=== PATIENT | male | born 1960 | race American Indian/Alaskan Native ===

== ENCOUNTER 2018-01-03 16:25 | Inpatient (IN) | payer MEDICAID, OTHER ==
--- NOTE | 2018-01-03 16:36 | ED PDOC ---
Arrival/HPI - General Time Seen by Provider: 01/03/18 16:29 Historian: Patient - Critical Care Critical Care Minutes: 30 minutes - History of Present Illness Narrative History of Present Illness (Text): 01/03/18 16:33 57yoM, w htn, having right partial aphasia, right sided facial droop, and right sided upper extremity and lower extremity weakness. no n/v/[place]/dizziness/sob/ chest pain/abdomen pain/pain with urination. Symptom Onset: Sudden Symptom Course: Unchanged Quality: Other (no pain) Activities at Onset: Rest Context: Sitting Past Medical History - Provider Review Nursing Documentation Reviewed: Yes - Travel History Have you recently traveled outside [place] w/in the past 3 mons?: No Family/Social History - Physician Review Nursing Documentation Reviewed: Yes Family/Social History: No Known Family HX Allergies/Home Meds Allergies/Adverse Reactions: Allergies No Known Allergies Allergy (Verified 01/03/18 16:27) Home Medications: Home Meds Medication Instructions Recorded Confirmed No Known Home Med 01/03/18 01/03/18 Review of Systems - Review of Systems Constitutional: Normal Eyes: Normal ENT: Normal Respiratory: Normal Cardiovascular: Normal Gastrointestinal: Normal Genitourinary Male: Normal Musculoskeletal: Normal Skin: Normal Neurological: Focal Weakness, Facial Droop Endocrine: Normal Hemo/Lymphatic: Normal Psychiatric: Normal Physical Exam Vital Signs Temp Pulse Resp BP Pulse Ox 01/03/18 18:48 98 F 72 18 169/89 H 01/03/18 18:18 75 18 163/96 H 97 01/03/18 17:51 75 18 167/98 H 96 01/03/18 17:42 78 185/115 H 01/03/18 17:21 98.3 F 89 18 176/106 H 95 01/03/18 16:35 98 F 88 18 185/116 H 96 Appearance: Positive for: Well-Appearing, Non-Toxic, Comfortable Pain Distress: None Mental Status: Positive for: other (aaox2, doesn't know year/month) - Systems Exam Head: Present: Atraumatic, Normocephalic Pupils: Present: PERRL Extroacular Muscles: Present: EOMI Conjunctiva: Present: Normal Ears: Present: Normal Mouth: Present: Moist Mucous Membranes Pharnyx: Present: Normal Nose (External): Present: Atraumatic Nose (Internal): Present: Normal Inspection Neck: Present: Normal Range of Motion Respiratory/Chest: Present: Clear to Auscultation, Good Air Exchange Cardiovascular: Present: Regular Rate and Rhythm Abdomen: No: Tenderness, Distention, Normal Bowel Sounds, Peritoneal Signs, Rebound, Guarding, McBurney's Point Tender, Rovsing's Sign Present, Hernias, Feeding Tubes, Ostomy Tubes, Mass/Organomegaly, Scars, Other Back: Present: Normal Inspection Upper Extremity: Present: Normal Inspection Lower Extremity: Present: Normal Inspection Neurological: Present: Other (mild dysarthria, right sided ue/le weakness) Psychiatric: Present: Alert, Oriented x 3, Normal Insight, Normal Concentration Medical Decision Making ED Course and Treatment: 57yoM, w htn, having right partial aphasia, right sided facial droop, and right sided upper extremity and lower extremity weakness. no n/v/[place]/dizziness/sob/ chest pain/abdomen pain/pain with urination. d/w neurologist carpentry professional who stated to call back after ct head. Report Date : 01/03/2018 16:47:38 PROCEDURE: CT HEAD WITHOUT CONTRAST. 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 See comments pt able to move the right upper extremity but has drift and the RLE poor raise and does so with bend and unable to maintain life. d/w Dr. Hall who stated give aspirin, proceed with CTA head/neck. prepare TPA. Report Date : 01/03/2018 16:58:01 Procedure: Chest xray Dictator : Raul Patel MD IMPRESSION: No active disease. 01/03/18 18:00 d/w Dr. Hall who stated to hold off on CTA head/neck at this time, start TPA, and admit to the ICU and can proceed w imaging afterwards. 01/03/18 18:03 ICU paged. 01/03/18 18:21 d/w Dr. Hall who reiterated proceed with TPA. frank OTT who is evaluating patient. 01/03/18 19:12 Frank Ariza who stated Dr. Russ accepted and pt can come to the ICU. Reassessment Condition: Improving,but remains with symptoms - Lab Interpretations Lab Results: 01/03/18 16:59 01/03/18 16:59 Lab Results 01/03/18 18:10: Blood Type O POSITIVE, Antibody Screen Negative, BBK History Checked No verified bt 01/03/18 16:59: Sodium 144, Potassium 3.6, Chloride 109 H, Carbon Dioxide 25, Anion Gap 14, BUN 14, Creatinine 1.3, Est GFR ( Amer) > 60, Est GFR (Non- Af Amer) 57, Random Glucose 122 H, Calcium 9.1, Magnesium 1.9, Total Bilirubin 0.5, AST 29, ALT 28, Alkaline Phosphatase 62, Lactate Dehydrogenase 489, Total Creatine Kinase 127, Troponin I < 0.01, Total Protein 7.0, Albumin 4.0, Globulin 3.0, Albumin/Globulin Ratio 1.4 01/03/18 16:59: PT 12.0, INR 1.05, APTT 31.7 01/03/18 16:59: WBC 6.1, RBC 4.90, Hgb 13.8 L, Hct 40.9 L, MCV 83.5, MCH 28.2, MCHC 33.7, RDW 14.2, Plt Count 212, MPV 10.1, Gran % 39.0 L, Lymph % (Auto) 52.1 H, [place] % (Auto) 7.9 H, Eos % (Auto) 0.7 L, Baso % (Auto) 0.3, Gran # 2.36 , Lymph # (Auto) 3.2, [place] # (Auto) 0.5, Eos # (Auto) 0.0, Baso # (Auto) 0.02 I have reviewed the lab results: Yes - RAD Interpretation Radiology Orders: 01/03/18 16:28 HEAD W/O (CODE STROKE) [CT] Stat 01/03/18 16:32 CHEST PORTABLE [RAD] Stat 01/03/18 17:05 CTA HEAD/NECK CODE STROKE [CT] Stat 01/03/18 17:27 MRI CODE STROKE/CODE BAT AMY [MRI] Urgent 01/03/18 18:41 CAROTID & VERTEBRAL DUPLEX [US] Routine Button Bradder: Radiologist - EKG Interpretation Interpreted by ED Physician: Yes (NSR, flipped t waves i, ii, iii, avf, v4, v5, v6.) Type: 12 lead EKG - Medication Orders Current Medication Orders: Sodium Chloride (Sodium Chloride 0.9%) 1,000 mls @ 100 mls/hr IV .Q10H SILVIA Last Admin: 01/03/18 17:43 Dose: 100 mls/hr eMAR Start Stop Document 01/03/18 17:43 [facility] (Rec: 01/03/18 17:43 [id number] Intravenous Solution Start Date 01/03/18 Start Time 17:43 diltiaZEM IVPB 100mg in NS (Cardizem 100mg In Ns) 100 mls @ 5 mls/hr IV .Q20H PRN; Protocol; 5 MG/HR PRN Reason: TITRATE PER MD ORDER Discontinued Medications Alteplase, Recombinant (Activase 100 Mg Inj) 6 mg 0.09 mg/kg (6 mg) IV ONCE ONE Stop: 01/03/18 17:58 Last Admin: 01/03/18 18:48 Dose: 6 mg eMAR Start Stop Document 01/03/18 18:48 [facility] (Rec: 01/03/18 18:49 [id number] Intravenous Solution Start Date 01/03/18 Start Time 18:47 End Date 01/03/18 End time 18:49 Total Infusion Time 2 Alteplase, Recombinant (Activase 100 Mg Inj) 55 mg 0.81 mg/kg (55 mg) IV ONCE ONE Stop: 01/03/18 18:15 Last Admin: 01/03/18 18:49 Dose: 55 mg eMAR Start Stop Document 01/03/18 18:49 [facility] (Rec: 01/03/18 18:50 [id number] Intravenous Solution Start Date 01/03/18 Start Time 18:50 End Date 01/03/18 End time 19:50 Total Infusion Time 60 Aspirin (Aspirin) 325 mg PO STAT STA Stop: 01/03/18 16:58 Last Admin: 01/03/18 17:43 Dose: Not Given Non-Admin Reason: NPO Labetalol HCl (Trandate) 20 mg IV STAT STA Stop: 01/03/18 17:26 Last Admin: 01/03/18 17:42 Dose: 20 mg eMAR Start Stop Document 01/03/18 17:42 [facility] (Rec: 01/03/18 17:43 [id number] Intravenous Solution Start Date 01/03/18 Start Time 17:42 End Date 01/03/18 End time 17:43 Total Infusion Time 1 MAR Pulse and Blood Pressure Document 01/03/18 17:42 [facility] (Rec: 01/03/18 17:43 [facility]-[id number]) Pulse Pulse Rate (60-90) 78 Blood Pressure Blood Pressure (100/60-150/90) 185/115 NIHSS Stroke Scale 3 - Date/Time Evaluation Performed Date Performed: 01/03/18 When Was NIHSS Performed: Baseline - How Severe is the Stroke Level of Consciousness: 0=Alert LOC to Questions: 1=One correct LOC to commands: 0=Obeys both correctly Best Gaze: 0=Normal Visual: 0=No visual loss Facial: 1=Minor asymmetry Motor Arm - Left: 0=No drift Motor Arm - Right: 3=No effort against gravity (falls immediately) Motor Leg - Left: 0=No drift Motor Leg - Right: 3=No effort against gravity (falls immediately) Limb Ataxia: 1=Present Upper or Lower Sensory: 1=Mild to moderate loss Best Language: 1=Mild to moderate aphasia Dysarthia: 1=Mild to moderate slurring Extinction & Inattention (Neglect): 1=Partial neglect (mild yosef-attention) Score: 13 Disposition/Present on Arrival - Present on Arrival Any Indicators Present on Arrival: No - Disposition Have Diagnosis and Disposition been Completed?: Yes Diagnosis: Stroke Disposition: HOSPITALIZED Disposition Time: 19:13 Patient Plan: Admission Condition: STABLE Referrals: Zaynab Chiang, [Primary Care Provider] - Follow up with primary
--- NOTE | 2018-01-03 16:49 | CT ---
PROCEDURE: CT HEAD WITHOUT CONTRAST. HISTORY: code stroke COMPARISON: None available. TECHNIQUE: Axial computed tomography images were obtained through the head/brain without intravenous contrast. Radiation dose: Total exam DLP = 965 mGy-cm. This CT exam was performed using one or more of the following dose reduction techniques: Automated exposure control, adjustment of the mA and/or kV according to patient size, and/or use of iterative reconstruction technique. FINDINGS: HEMORRHAGE: No intracranial hemorrhage. BRAIN: No mass effect or edema. Two separate areas of hypodensity are seen 1 in the right parietal lobe and the 2nd in the left posterior frontal lobe or in the parietal lobe. Both of these have the appearance of chronic infarcts. Unfortunately there are no prior studies for comparison. MRI of may be indicated to further evaluate these findings. Findings were discussed with Dr. Matute at 4:45 p.m. VENTRICLES: Unremarkable. No hydrocephalus. CALVARIUM: Unremarkable. PARANASAL SINUSES: Unremarkable as visualized. No significant inflammatory changes. MASTOID AIR CELLS: Unremarkable as visualized. No inflammatory changes. OTHER FINDINGS: None. 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 See comments
--- NOTE | 2018-01-03 17:00 | RAD ---
HISTORY: 57yoM, stroke symptoms COMPARISON: No prior. FINDINGS: LUNGS: No active pulmonary disease. PLEURA: No significant pleural effusion identified, no pneumothorax apparent. CARDIOVASCULAR: No radiographic findings to suggest acute or significant cardiovascular disease. OSSEOUS STRUCTURES: No significant abnormalities. VISUALIZED UPPER ABDOMEN: Normal. OTHER FINDINGS: None. IMPRESSION: No active disease.
[2018-01-03 17:05] LABS: BASO # 0.02 K/mm3 (0.0-2.0); BASO % 0.3 % (0.0-3.0); EOS % 0.7 % (1.5-5.0); GRAN # 2.36 (1.4-6.5); HEMOGLOBIN 13.8 g/dL (14.0-18.0); LYMPH # 3.2 (1.2-3.4); LYMPH % 52.1 % (22.0-35.0); MEAN CELL VOLUME 83.5 fl (80.0-105.0); MEAN CORPUSCULAR HEMOGLOBIN 28.2 pg (25.0-35.0); MEAN CORPUSCULAR HGB CONC 33.7 g/dl (31.0-37.0); MEAN PLATELET VOLUME 10.1 fl (7.0-11.0); MONO # 0.5 (0.1-0.6); MONO % 7.9 % (1.0-6.0); RBC 4.9 10^6/uL (3.5-6.1); RED CELL DISTRIBUTION WIDTH 14.2 % (11.5-14.5); WHITE BLOOD COUNT 6.1 10^3/ul (4.5-11.0)
[2018-01-03 17:15] LABS: INR 1.05 (0.93-1.08); PARTIAL THROMBOPLASTIN TIME 31.7 Seconds (25.1-36.5)
[2018-01-03] MEDS ORDERED: Sodium Chloride 0.9% 1,000 ML IV SCH (17:15)
[2018-01-03 17:16] LABS: ALB/GLOB RATIO 1.4 (1.1-1.8); ALT/SGPT 28 U/L (7-56); AST/SGOT 29 U/L (17-59); BLOOD UREA NITROGEN 14 mg/dL (7-21); CALCIUM 9.1 mg/dL (8.4-10.5); GFR AFRICAN-AMERICAN > 60; GFR NON-AFRICAN AMERICAN 57
[2018-01-03] MEDS ORDERED: Labetalol 5 mg/ml Inj 20ML IV STA (17:25)
[2018-01-03 17:26] LABS: TROPONIN I < 0.01 ng/mL
--- NOTE | 2018-01-03 17:51 | CP.PCM.CON ---
History of Present Illness - History of Present Illness History of Present Illness: 57 yr old male who has pmh htn, of ESRD on HD, who had right sided facial droop, right arm weakness, that is now resolved. He is not a TPA candidate, and upon exam he has a normal neurological exam. no n/v/[place]/dizziness/sob/chest pain/ abdomen pain/pain with urination. He denies headache, weakness, or prior spells at this time, but is quite lethargic. PMH/PSH: as above, with left leg aka. FH/SH: as per chart All: nkda On exam: AAox3. Cn 2-12 normal. No facial asymmetry. Speech mildly dysarthric but fluent. Right arm mild pronator drift. right leg 5/5 left arm 5/5,. sensory: decreased ft, pin on right arm. Gait not tested. +2 dtr ul and ll bl. Toes dowgoing. No clonus. Past Patient History - Past Social History Smoking Status: Never Smoked - PSYCHIATRIC Hx Substance Use: No - SURGICAL HISTORY Hx Surgeries: No Meds Allergies/Adverse Reactions: Allergies Allergy/AdvReac Type Severity Reaction Status Date / Time No Known Allergies Allergy Verified 01/03/18 16:27 Results - Labs Result Diagrams: 01/03/18 16:59 01/03/18 16:59 - Imaging and Cardiology CT scan - head Status: Image reviewed by me, Report reviewed by me (ct head normal. ) Assessment & Plan - Assessment and Plan (Free Text) Assessment: 57 yr old male with spell of confusion and right sided weakness that is not completely resolved who is not TPA candidate due to very low NIH score. He most likely has atherosclerosis, and would benefit from stroke workup. Plan: 1. Echo 2. Cta HEAD AND NECK 3. start aspirin 325 mg po qd 4. MRI Brain without rocio 5. DVT prophylaxis 6. PT/ST/OT 8. Admit to telemetry. Thank you dr. tapia
--- NOTE | 2018-01-03 18:16 | CP.PCM.CON ---
History of Present Illness - History of Present Illness History of Present Illness: 57 yr old male who came in as a code stroke, with symptoms of right facial droop, right leg weakness that started about 30 minutes before coming to Er. CT head was normal, as well as labs, and we have determined that he is a TPA candidate. We will give TPA bolus, and admit to ICU for observation after administration. NIH score is approximately 6/10. PMH/PSH: FH/SH: All: on exam: Past Patient History - Past Social History Smoking Status: Never Smoked - PSYCHIATRIC Hx Substance Use: No - SURGICAL HISTORY Hx Surgeries: No Meds Allergies/Adverse Reactions: Allergies Allergy/AdvReac Type Severity Reaction Status Date / Time No Known Allergies Allergy Verified 01/03/18 16:27 - Medications Medications: Current Medications Sodium Chloride (Sodium Chloride 0.9%) 1,000 mls @ 100 mls/hr IV .Q10H SILVIA Last Admin: 01/03/18 17:43 Dose: 100 mls/hr Results - Vital Signs Recent Vital Signs: Last Vital Signs Temp 98.3 F 01/03/18 17:21 Pulse 75 01/03/18 17:51 Resp 18 01/03/18 17:51 BP 167/98 H 01/03/18 17:51 Pulse Ox 96 01/03/18 17:51 - Labs Result Diagrams: 01/03/18 16:59 01/03/18 16:59 Labs: Laboratory Results - last 24 hr 01/03/18 01/03/18 01/03/18 16:59 16:59 16:59 WBC 6.1 RBC 4.90 Hgb 13.8 L Hct 40.9 L MCV 83.5 MCH 28.2 MCHC 33.7 RDW 14.2 Plt Count 212 MPV 10.1 Gran % 39.0 L Lymph % (Auto) 52.1 H Branch % (Auto) 7.9 H Eos % (Auto) 0.7 L Baso % (Auto) 0.3 Gran # 2.36 Lymph # (Auto) 3.2 Branch # (Auto) 0.5 Eos # (Auto) 0.0 Baso # (Auto) 0.02 PT 12.0 INR 1.05 APTT 31.7 Sodium 144 Potassium 3.6 Chloride 109 H Carbon Dioxide 25 Anion Gap 14 BUN 14 Creatinine 1.3 Est GFR ( Amer) > 60 Est GFR (Non-Af Amer) 57 Random Glucose 122 H Calcium 9.1 Magnesium 1.9 Total Bilirubin 0.5 AST 29 ALT 28 Alkaline Phosphatase 62 Lactate Dehydrogenase 489 Total Creatine Kinase 127 Troponin I < 0.01 Total Protein 7.0 Albumin 4.0 Globulin 3.0 Albumin/Globulin Ratio 1.4 - Imaging and Cardiology CT scan - head Status: Image reviewed by me, Report reviewed by me (Normal ct head no strokes or hemorrhages. ) Assessment & Plan - Assessment and Plan (Free Text) Assessment: 57 yr old male who is a TPA candidate and is most likely having left mca stroke. TPA was given approximately 1.5 hours after presentation with initial NIH score of 6. We will admit the patient to ICU and start stroke workup. Plan 1. Keep BP normotensive at aroudn 150/70-140/70 2. ECHO with bubble study 3. CTA head and neck and neurovascular consultation if needed 4. No aspirin at this time. 5. DVT with venodynes 6. PT/St/OT 7. Neuro checks q 4hours 8. Repeat CT head in am. 9. Admit to ICU with telemetry Thank you dr. Hall
--- NOTE | 2018-01-03 18:39 | CP.PCM.CON ---
History of Present Illness - History of Present Illness History of Present Illness: MICU Consult Note HPI Patient is 57yo male with PMhx of HTN, past cocaine use, presents with R sided weakness, dysarthria, confusion. Pt's daughter, kaiden, at bedside and provided majority of the history. As per the daughter patient was last seen normal at 3;06pm, at which time he developed dysarthria, facial droop, and R sided weakness with difficulty ambulating. Pt presented to the ER as stroke code , case discussed with neurology by ER staff, patient a candidate for tPA therapy. Currently afebrile, HD stable, BP 163/90, awake, alert, protecting airway. PMHx as above PSHx as above Meds NONE FHx NC Social past cocaine use, current smoker 1ppd, denies etoh, illicit drug use Review of Systems - Review of Systems Review of Systems: as per HPI Past Patient History - Past Social History Smoking Status: Never Smoked - PSYCHIATRIC Hx Substance Use: No - SURGICAL HISTORY Hx Surgeries: No Meds Allergies/Adverse Reactions: Allergies Allergy/AdvReac Type Severity Reaction Status Date / Time No Known Allergies Allergy Verified 01/03/18 16:27 - Medications Medications: Current Medications Sodium Chloride (Sodium Chloride 0.9%) 1,000 mls @ 100 mls/hr IV .Q10H SILVIA Last Admin: 01/03/18 17:43 Dose: 100 mls/hr Physical Exam - Constitutional Appears: Non-toxic, No Acute Distress - Eye Exam Eye Exam: EOMI, Normal appearance - ENT Exam ENT Exam: Mucous Membranes Moist - Respiratory Exam Respiratory Exam: Clear to Auscultation Bilateral, NORMAL BREATHING PATTERN - Cardiovascular Exam Cardiovascular Exam: REGULAR RHYTHM, +S1, +S2 - GI/Abdominal Exam GI & Abdominal Exam: Normal Bowel Sounds, Soft - Extremities Exam Extremities exam: Positive for: normal inspection - Neurological Exam Additional comments: LUE 5/5 LLE 5/5 RLE 3/5 RUE 2/5 NO facial asymetry Results - Vital Signs Recent Vital Signs: Last Vital Signs Temp 98.3 F 01/03/18 17:21 Pulse 75 01/03/18 18:18 Resp 18 01/03/18 18:18 BP 163/96 H 01/03/18 18:18 Pulse Ox 97 01/03/18 18:18 - Labs Result Diagrams: 01/03/18 16:59 05/15/18 16:59 Labs: Laboratory Results - last 24 hr 01/03/18 01/03/18 01/03/18 16:59 16:59 16:59 WBC 6.1 RBC 4.90 Hgb 13.8 L Hct 40.9 L MCV 83.5 MCH 28.2 MCHC 33.7 RDW 14.2 Plt Count 212 MPV 10.1 Gran % 39.0 L Lymph % (Auto) 52.1 H Bell % (Auto) 7.9 H Eos % (Auto) 0.7 L Baso % (Auto) 0.3 Gran # 2.36 Lymph # (Auto) 3.2 Bell # (Auto) 0.5 Eos # (Auto) 0.0 Baso # (Auto) 0.02 PT 12.0 INR 1.05 APTT 31.7 Sodium 144 Potassium 3.6 Chloride 109 H Carbon Dioxide 25 Anion Gap 14 BUN 14 Creatinine 1.3 Est GFR ( Amer) > 60 Est GFR (Non-Af Amer) 57 Random Glucose 122 H Calcium 9.1 Magnesium 1.9 Total Bilirubin 0.5 AST 29 ALT 28 Alkaline Phosphatase 62 Lactate Dehydrogenase 489 Total Creatine Kinase 127 Troponin I < 0.01 Total Protein 7.0 Albumin 4.0 Globulin 3.0 Albumin/Globulin Ratio 1.4 BBK History Checked 01/03/18 18:10 WBC RBC Hgb Hct MCV MCH MCHC RDW Plt Count MPV Gran % Lymph % (Auto) Bell % (Auto) Eos % (Auto) Baso % (Auto) Gran # Lymph # (Auto) Bell # (Auto) Eos # (Auto) Baso # (Auto) PT INR APTT Sodium Potassium Chloride Carbon Dioxide Anion Gap BUN Creatinine Est GFR ( Amer) Est GFR (Non-Af Amer) Random Glucose Calcium Magnesium Total Bilirubin AST ALT Alkaline Phosphatase Lactate Dehydrogenase Total Creatine Kinase Troponin I Total Protein Albumin Globulin Albumin/Globulin Ratio BBK History Checked No verified bt Assessment & Plan - Assessment and Plan (Free Text) Assessment: 57yo male with acute CVA receiving tPA Acute CVA HTN Recommend: - supp o2 as needed - panculture - BP control, SBP<180 - q1h neuro checks - echo with bubble - check lipid panel, TSH, HgbA1C - MRI/MRA - CT Angio - neurology follow up - no blood draws, shetty for 24h - monitor in MICU
[2018-01-03] MEDS ORDERED: diltiaZEM IVPB 100mg in NS 100 ML IV PRN (18:47)
[2018-01-03] MEDS ORDERED: Iohexol 300 100 ML IJ ONE (19:48)
[2018-01-03] MEDS ORDERED: Iohexol 350 MG/100 ML VIAL ONE (19:49)
--- NOTE | 2018-01-03 19:50 | CP.PCM.HP ---
Addendum entered and electronically signed by Lian Mansfield DO 01/03/18 21:43 : PMD: Dr Shonda Shipley @ [phone] [facility] Original Note: <Lian Mansfield - Last Filed: 01/03/18 21:34> History of Present Illness - History of Present Illness History of Present Illness: PGY-[address] Ariza Mr Elizabeth, 57 M, with PMHx active smoker of 1-2 PPD x 30 years, HTN, past heroine use 5 years ago, presented to ED c/o spell of confusion, R sided droop, right sided weakness with dysarthria, started at 3:06pm, 30 minutes before coming to the ER . Code stroke was called. Lab was normal. CT head showed hypodensity in R parietal and L posterior frontal lobe, possibly chronic. No mass or edema. He was deemed TPA candidate, and received TPA bolus. He was admitted to ICU for observation after administration. NIH score was approximately 6/10 pre-TPA ROS - Denies COBURN, dizziness, Chest pain, SOB, palpitation, N/V, abdomen pain, pain with urination. (+) slurr speech-improve, (+) R arm weakness-improved. PMH: hypertension Active smoker 1-2 PPD x 30 years Past heroine use > 5 years ago PSH: None FH: Denies. No inherited blood or autoimmune disorder SH: (+) Smoker 1-2PPD x 30 years, No etoh. No drug recently All: nkda Med: Amlodipine, but not taking it Daughter Ila [phone] PMD: [phone] [facility] Present on Admission - Present on Admission Any Indicators Present on Admission: No Past Patient History - Past Social History Smoking Status: Never Smoked - PSYCHIATRIC Hx Substance Use: No - SURGICAL HISTORY Hx Surgeries: No Meds Allergies/Adverse Reactions: Allergies Allergy/AdvReac Type Severity Reaction Status Date / Time No Known Allergies Allergy Verified 01/03/18 16:27 Physical Exam - Constitutional Appears: No Acute Distress - Head Exam Head Exam: ATRAUMATIC, NORMAL INSPECTION, NORMOCEPHALIC - Eye Exam Eye Exam: EOMI, Normal appearance, PERRL. absent: Scleral icterus Pupil Exam: NORMAL ACCOMODATION - ENT Exam ENT Exam: Mucous Membranes Moist - Neck Exam Additional comments: supple, No JVD - Respiratory Exam Respiratory Exam: Clear to Auscultation Bilateral. absent: Rales, Rhonchi, Wheezes - Cardiovascular Exam Cardiovascular Exam: REGULAR RHYTHM, +S1, +S2. absent: Systolic Murmur - GI/Abdominal Exam GI & Abdominal Exam: Normal Bowel Sounds, Soft. absent: Distended, Guarding, Tenderness - Extremities Exam Extremities exam: Positive for: pedal pulses present. Negative for: calf tenderness, pedal edema - Neurological Exam Neurological exam: Alert, Oriented x3 Additional comments: AAOx3 Slight slurring of speech. deepened nasal-labile fold on R EOMI tongue midline Mild drift R arm Motor: 4+/5 RUE, RLE; 5/5 LUE/LLE. Good hand weed thinner Sensory: markedly diminish R shoulder to R hand; markedly diminish R leg and foot [id number]: over shoot on R arm - Psychiatric Exam Psychiatric exam: Normal Affect, Normal Mood Additional comments: Tears. Pt was emotionally startled by this event - Skin Skin Exam: Dry, Warm Results - Vital Signs Recent Vital Signs: Last Vital Signs Temp 98 F 01/03/18 19:15 Pulse 73 01/03/18 19:15 Resp 18 01/03/18 19:15 BP 169/78 H 01/03/18 19:15 Pulse Ox 98 01/03/18 18:47 - Labs Result Diagrams: 01/03/18 16:59 01/03/18 16:59 Assessment & Plan - Assessment and Plan (Free Text) Plan: Mr Elizabeth, 57 M, with PMHx active smoker of 1-2 PPD x 30 years, HTN, past heroine use 5 years ago, presented to ED c/o spell of confusion, R sided droop, right sided weakness and numbness with dysarthria, started at 3:06pm, 30 minutes before coming to the ER . CT head showed hypodensity in R parietal and L posterior frontal lobe, possibly chronic. No mass or edema. He was deemed TPA candidate, and received TPA bolus. Neuro - maintain nomothermia - neuro check q1 - seizure precaution - Stroke workup: bubble study, carotid U/S, - no blood drawn in 24 hours. Lab will be drawn tomorrow 18:00 Lipid, A1C, TSH/Free T4 dsDNA, CHARLES, antiphospholipid ab, lupus ab, Cardiolipin Ab C function, S total/function, Anti-thrombin 3, Factor 5, 8 - smoking cessation counseling; nicoderm - Pending UDS - PT/OT/ST eval and treat - AM CT head, CTA head/neck, MRI head Pulm - Maintain PaO2 above 95%; O2 as needed Card - cardene gtt to maintain SBP < 180, DBP < 100 - should start ASA, statin pending neuro confirmation GI - NPO pending swallow eval - Protonix IV AM Renal - Strict i/o - No shetty to prevent bleeding Endo - maintain euglycemic 140 - Pending TSH, A1C, lipid Heme - S/p TPA - SCD as DVT prophylaxis ID: - Panculture tomorrow 18:00 s/r/d/w Dr Ariza <Annita SANTIAGO,El - Last Filed: 01/04/18 06:17> Results - Vital Signs Recent Vital Signs: Last Vital Signs Temp 98 F 01/04/18 04:00 Pulse 66 01/04/18 04:00 Resp 18 01/04/18 04:00 BP 125/82 01/04/18 04:00 Pulse Ox 99 01/04/18 04:00 - Labs Result Diagrams: 01/03/18 16:59 01/03/18 16:59 Labs: Laboratory Results - last 24 hr 01/03/18 01/03/18 01/03/18 20:09 22:32 23:23 Urine Color Yellow Urine Appearance Clear Urine pH 6.5 Ur Specific [place] 1.015 Urine Protein Trace H Urine Glucose (UA) Negative Urine Ketones Negative Urine Blood Trace-lysed H Urine Nitrate Negative Urine Bilirubin Negative Urine Urobilinogen 0.2 Ur Leukocyte Esterase Negative Urine RBC 2 - 5 Urine WBC 0 - 2 Ur Epithelial Cells None Urine Bacteria Few Urine Opiates Screen Negative Urine Methadone Screen Negative Ur Barbiturates Screen Negative Ur Phencyclidine Scrn Negative Ur Amphetamines Screen Negative U Benzodiazepines Scrn Negative U Oth Cocaine Metabols Negative U Cannabinoids Screen Negative Blood Type Confirm O POSITIVE Attending/Attestation - Attestation I have personally seen and examined this patient.: Yes I have fully participated in the care of the patient.: Yes I have reviewed all pertinent clinical information: Yes Notes (Text): -I agree with the above H&P completed by the resident physician with the following additions and/or changes: -The patient is a 57 year old man with a history of HTN and chronic cigarette abuse (1-2 PPD x 30yrs), being admitted for acute CVA (s/p t-PA administered in the ED) and hypertensive emergency. He'll be admitted to the ICU for hourly neuro-checks and tight BP control (goal: SBP<180 and DBP<100); using Nicardipine drip. Neurology is already on board. Swallow evaluation in AM, NPO, fall precautions and HOB>30.
--- NOTE | 2018-01-03 20:33 | CARD ---
APPROVED REPORT EKG Measurement Heart [id number] ID [id number] <Conclusion> Normal sinus rhythm Possible Left atrial enlargement Inferior infarct, age undetermined T wave abnormality, consider lateral ischemia Abnormal ECG
[2018-01-03] MEDS: Nicardipine 20 MG/200 ML 20 MG/200 ML BAG IV PRN (21:39)
[2018-01-03] MEDS: Sodium Chloride 0.45% 1,000 ML IV SCH (21:40)
[2018-01-03 22:49] LABS: PH,URINE 6.5 (4.7-8.0); URINE BILIRUBIN NEGATIVE (NEGATIVE); URINE BLOOD TRACE-LYSED (NEGATIVE); URINE GLUCOSE (UA) NEGATIVE (NEGATIVE); URINE LEUKOCYTE ESTERASE NEGATIVE Leu/uL (NEGATIVE); URINE PROTEIN TRACE mg/dL (<30 mg/dL); URINE UROBILINOGEN 0.2 E.U./dL (<1 E.U./dL)
[2018-01-03 22:52] LABS: URINE APPEARANCE CLEAR (CLEAR); URINE COLOR YELLOW (YELLOW)
[2018-01-03 23:04] LABS: URINE BACTERIA FEW (NEG); URINE WBC 0 - 2 /hpf (0-6)
[2018-01-04 00:13] LABS: BARBITURATES, UR NEGATIVE (NEGATIVE); BENZODIAZEPINES, UR NEGATIVE (NEGATIVE); OPIATES, UR NEGATIVE (NEGATIVE); PHENCYCLIDINE, UR NEGATIVE (NEGATIVE)
[2018-01-04 02:00] VITALS: BMI 21.6
[2018-01-04] MEDS: Nicardipine 20 MG/200 ML 20 MG/200 ML BAG IV PRN (03:50)
[2018-01-04 04:14] LABS: HDL CHOLESTEROL 44 mg/dL (29-60)
[2018-01-04 04:25] LABS: LDL CHOLESTEROL 61 mg/dL (0-129)
[2018-01-04] MEDS: Sodium Chloride 0.45% 1,000 ML IV SCH ×2 (07:10→17:00)
--- NOTE | 2018-01-04 07:12 | CP.PCM.PN ---
Addendum entered and electronically signed by Barber Hatch DO 01/04/18 17:56 : MRI of brain: Acute infarct changes seen in the left lung parietal operculum region extending anteriorly and inferiorly into the left posterior subinsular cortex as well as superiorly near the vertex. There are curvilinear areas of very dark T2 signal seen on gradient echo weighted sequence along some portions of the affected cortex which is of uncertain etiology though could represent some residual iodinated contrast material from prior CTA of the neck and brain due to some vascular stasis as no definitive hemorrhage seen in this location on CT scan. Follow-up of CT scan recommended to confirm and exclude any hemorrhagic degradation. Note these findings were discussed with ICU Nurse Chad at approximately 3:40 p.m. with written down and read back verification. Original Note: <Barber Hatch - Last Filed: 01/04/18 12:48> Subjective - Date & Time of Evaluation Date of Evaluation: 01/04/18 Time of Evaluation: 07:45 - Subjective Subjective: Hospitalist Service: Patient seen and examined at bedside. Patient reports weakness of right upper and lower extremity has resolved. Patient does report some sensory changes in the right hand. Otherwise, no complaints. Objective - Vital Signs/Intake and Output Vital Signs (last 24 hours): Temp Pulse Resp BP Pulse Ox 98 F 63 18 135/75 98 01/04/18 04:00 01/04/18 06:00 01/04/18 06:00 01/04/18 06:00 01/04/18 06:00 Intake and Output: 01/04/18 01/04/18 06:59 18:59 Intake Total 275 Balance 275 - Medications Medications: Current Medications Nicardipine HCl (Cardene Iv Premix) 20 mg in 200 mls @ 50 mls/hr IV .Q4H PRN; Protocol; 5 MG/HR PRN Reason: TITRATE PER MD ORDER Last Titration: 01/04/18 06:30 Dose: 0 mg/hr, 0 mls/hr Sodium Chloride (Sodium Chloride 0.45%) 1,000 mls @ 100 mls/hr IV .Q10H SILVIA Last Admin: 01/03/18 21:40 Dose: 100 mls/hr Nicotine (Nicoderm Cq) 1 patch TD DAILY SILVIA Pantoprazole Sodium (Protonix Inj) 40 mg IVP DAILY SILVIA - Labs Labs: PT 12.0 SECONDS (9.4-12.5) 18 16:59 INR 1.05 (0.93-1.08) 18 16:59 APTT 31.7 Seconds (25.1-36.5) 01/03/18 16:59 - Constitutional Appears: Well, Non-toxic - Head Exam Head Exam: ATRAUMATIC, NORMOCEPHALIC - Eye Exam Eye Exam: EOMI, Normal appearance - ENT Exam ENT Exam: Mucous Membranes Moist - Neck Exam Neck Exam: Normal Inspection - Respiratory Exam Respiratory Exam: Clear to Ausculation Bilateral, NORMAL BREATHING PATTERN. absent: Accessory Muscle Use - Cardiovascular Exam Cardiovascular Exam: RRR, +S1, +S2 - GI/Abdominal Exam GI & Abdominal Exam: Soft, Normal Bowel Sounds - Extremities Exam Extremities Exam: Normal Inspection. absent: Calf Tenderness - Neurological Exam Neurological Exam: Alert, Awake, Oriented x3 Neuro motor strength exam: Left Upper Extremity: 5, Right Upper Extremity: 5, Left Lower Extremity: 5, Right Lower Extremity: 5 - Psychiatric Exam Psychiatric exam: Normal Affect, Normal Mood - Skin Skin Exam: Dry, Intact, Normal Color, Warm Assessment and Plan - Assessment and Plan (Free Text) Assessment: Mr Elizabeth, 57 M, with PMHx active smoker of 1-2 PPD x 30 years, HTN, past heroin use 5 years ago, presented to ED c/o spell of confusion, R sided droop, right sided weakness and numbness with dysarthria, started at 3:06pm, 30 minutes before coming to the ER . CT head showed hypodensity in R parietal and L posterior frontal lobe, possibly chronic. No mass or edema. He was deemed TPA candidate, and received TPA bolus. Neuro - maintain nomothermia - neuro check q1 - seizure precaution - Stroke workup: bubble study - no blood drawn in 24 hours. Lab will be drawn today 18:00 TG 132 Cholesterol 151 LDL 61 HDL 44 A1C, TSH/Free T4 pending dsDNA, CHARLES, antiphospholipid ab, lupus ab, Cardiolipin Ab C function, S total/function, Anti-thrombin 3, Factor 5, 8 - smoking cessation counseling; nicoderm - UDS negative - PT/OT/ST eval and treat - AM CT head reads as: Re-demonstrated are chronic appearing bilateral right parietal and left posterior frontoparietal infarct changes. Note that the possibility of a small hyperacute infarct cannot be excluded on this study Minor generalized volume loss. - CTA head/neck reads as Normal CT Angiography of the neck. - MRI head pending Pulm - Maintain PaO2 above 95%; O2 as needed Card - cardene gtt to maintain SBP < 180, DBP < 100 - aspirin can be started 24 hours after tPa administration; decision deferred to neurology GI - NPO pending swallow eval - Protonix IV AM Renal - Strict i/o - No shetty to prevent bleeding Endo - maintain euglycemic 140 - Pending TSH, A1C, lipid Heme - S/p TPA - SCD as DVT prophylaxis ID: - Panculture today 18:00 s/r/d/w Dr Workman <Flex Workman - Last Filed: 01/06/18 15:47> Objective - Vital Signs/Intake and Output Vital Signs (last 24 hours): Temp Pulse Resp BP Pulse Ox 98.3 F 78 18 137/84 96 01/06/18 06:00 01/06/18 10:00 01/06/18 06:00 01/06/18 09:23 01/06/18 06:00 Intake and Output: 01/06/18 01/06/18 06:59 18:59 Intake Total 200 600 Balance 200 600 - Labs Labs: 01/06/18 05:45 01/06/18 05:45 PT 12.0 SECONDS (9.4-12.5) 01/03/18 16:59 INR 1.05 (0.93-1.08) 01/03/18 16:59 APTT 31.7 Seconds (25.1-36.5) 01/03/18 16:59 Attending/Attestation - Attestation I have personally seen and examined this patient.: Yes I have fully participated in the care of the patient.: Yes I have reviewed all pertinent clinical information, including history, physical exam and plan: Yes Notes (Text): 01/06/18 15:46 Medical record note made by the resident after discussion with my direction and input after the patient was personally seen and examined by me. I have reviewed the chart and agree that the record accurately reflects by personal performance of the history, physical exam, data review, and medical decision-making, in the course for the patient. I have also personally directed the plan of care. 57 male with PMH of HTN, cocaine user, ex smoker presented with R sided weakness and facial droop. Code Stroke was called in the ED and patient was given tPA and transferred to MICU for monitoring. MRI of Brain today showedAcute infarct changes seen in the left lung parietal operculum region extending anteriorly and inferiorly into the left posterior subinsular cortex as well as superiorly near the vertex. Patient right sided weakness has resolved.He still has sensory deficit in right upper extremities. Blood pressure is better controlled.He is off Cardizem drip.We will follow up Echo. Management plan was discussed in detail with patient. Education was provided.
--- NOTE | 2018-01-04 08:02 | CP.PCM.PN ---
Subjective - Date & Time of Evaluation Date of Evaluation: 01/04/18 Time of Evaluation: 08:00 - Subjective Subjective: PGY2 Progress note for Dr. Hall Patients seen and examined at bedside. Nursing reports no acute events overnight. Patient was resting comfortably in bed with family at bedside. Denied any residual weakness in his RUE and RLE. Patient's only complain was decreased sensation in his R forearm and hand. Patient denied acute complaints of headache, dizziness, chest pain, palpitations, SOB, cough, abd pain, nausea, vomiting, bowel/bladder complaints, pain/swelling in his legs b/l. Patient is eating well and is to work with PT today. Objective - Vital Signs/Intake and Output Vital Signs (last 24 hours): Temp Pulse Resp BP Pulse Ox 98 F 70 27 H 127/76 99 01/04/18 04:00 01/04/18 07:50 01/04/18 07:50 01/04/18 07:30 01/04/18 07:50 Intake and Output: 01/04/18 01/04/18 06:59 18:59 Intake Total 275 Balance 275 - Medications Medications: Current Medications Nicardipine HCl (Cardene Iv Premix) 20 mg in 200 mls @ 50 mls/hr IV .Q4H PRN; Protocol; 5 MG/HR PRN Reason: TITRATE PER MD ORDER Last Titration: 01/04/18 06:30 Dose: 0 mg/hr, 0 mls/hr Sodium Chloride (Sodium Chloride 0.45%) 1,000 mls @ 100 mls/hr IV .Q10H SILVIA Last Admin: 01/04/18 07:10 Dose: 100 mls/hr Nicotine (Nicoderm Cq) 1 patch TD DAILY SILVIA Pantoprazole Sodium (Protonix Inj) 40 mg IVP DAILY SILVIA - Labs Labs: PT 12.0 SECONDS (9.4-12.5) 01/03/18 16:59 INR 1.05 (0.93-1.08) 01/03/18 16:59 APTT 31.7 Seconds (25.1-36.5) 01/03/18 16:59 - Constitutional Appears: Non-toxic, No Acute Distress - Head Exam Head Exam: ATRAUMATIC, NORMAL INSPECTION, NORMOCEPHALIC - Eye Exam Eye Exam: EOMI, Normal appearance, PERRL. absent: Conjunctival injection, Scleral icterus Pupil Exam: NORMAL ACCOMODATION - ENT Exam ENT Exam: Mucous Membranes Moist - Neck Exam Neck Exam: Full ROM, Normal Inspection - Respiratory Exam Respiratory Exam: NORMAL BREATHING PATTERN. absent: Accessory Muscle Use, Respiratory Distress - Cardiovascular Exam Cardiovascular Exam: +S1, +S2 - GI/Abdominal Exam GI & Abdominal Exam: Soft. absent: Tenderness - Rectal Exam Rectal Exam: Deferred - Extremities Exam Extremities Exam: Normal Capillary Refill, Normal Inspection. absent: Pedal Edema, Tenderness - Neurological Exam Neurological Exam: Alert, Awake, CN II-XII Intact, Normal Gait, Oriented x3 Neuro motor strength exam: Left Upper Extremity: 5, Right Upper Extremity: 5, Left Lower Extremity: 5, Right Lower Extremity: 5 Additional comments: no aphasia no dysarthria decreased sensation R hand - Psychiatric Exam Psychiatric exam: Normal Affect, Normal Mood - Skin Skin Exam: Dry, Intact, Normal Color, Warm Assessment and Plan - Assessment and Plan (Free Text) Assessment: 57yo male PMhx HTN, cocaine user, ex smoker presented with R sided weakness and facial droop. Code Stroke was called in the ED and patient was given tPA and transferred to MICU for monitoring. Plan: -maintain SBP 120-140mmHg -patient off cardene gtt -f/u hypercoag work up -f/u MRI -f/u Echo with bubble -CT head this AM s/p tPA yesterday: no acute intracranial hemorrhage. Re- demonstrated are chronic appearing b/l R parietal and L posterior frontoparietal infarct changes. Note that the possibility of a small hyperacute infarct cannot be excluded on this study. Minor generalized volume loss. -CTA head/neck: unremarkable -CT head on admission: probable chronic infarcts in R parietal and L posterior frontal lobes -PT/OT -Smoking cessation and Drug counseling -Aspiration and Seizure precautions -Neuro checks -HoB above 30 degrees -Continue management as per medicine team Neuro will continue to follow Discussed with Dr. Rafael Roy PGY2
--- NOTE | 2018-01-04 08:56 | CT ---
PROCEDURE: CT angiogram of the neck brain 01/03/2018 HISTORY: Per Dr. Hall -57M, right sided weakness. COMPARISON: Correlation made with CT scan brain 01/03/2018 at 1634 hours TECHNIQUE: Contiguous helical/transaxial images of the neck and brain were obtained from the level of the skull-base to the superior mediastinum in the arteriographic phase of enhancement. Coronal and sagittal reformats or also generated. IV contrast dose: 100 cc Omnipaque 350 Radiation Dose - DLP: 673.15 mGy-cm This CT exam was performed using one or more of the following dose reduction techniques: Automated exposure control, adjustment of the mA and/or kV according to patient size, and/or use of iterative reconstruction technique. . . FINDINGS: Visualized portions of the aortic arch hop are patent without significant atherosclerotic plaque. On the origins of the great vessels are also widely patent. The common carotid arteries, carotid bifurcations and internal carotid arteries are also patent without evidence of significant atherosclerotic plaque. No evidence of occlusion significant stenosis or dissection. The none distal internal carotid arteries including the petrous cavernous and supraclinoid segments also patent. Both vertebral arteries are visible throughout right-sided which is slightly larger in caliber/more dominant than the left side. origin of the right posterior cerebral artery. The visualized major branches of the [place] are patent as well. The proximal margins of the anterior middle and posterior cerebral arteries are patent ; and distal branches are symmetric so far as can be determined. No evidence of large aneurysm nor vascular malformation. IMPRESSION: Normal CT Angiography of the neck. .
--- NOTE | 2018-01-04 09:06 | CT ---
PROCEDURE: CT scan brain dated 01/04/2018. HISTORY: Compare stroke COMPARISON: Comparison made with prior study 01/03/2018. TECHNIQUE: Axial computed tomography images were obtained through the head/brain without intravenous contrast. Radiation dose: Total exam DLP = 856.28 mGy-cm. This CT exam was performed using one or more of the following dose reduction techniques: Automated exposure control, adjustment of the mA and/or kV according to patient size, and/or use of iterative reconstruction technique. FINDINGS: HEMORRHAGE: No acute parenchymal, subarachnoid or extra-axial hemorrhage. BRAIN: No re- demonstrated are chronic appearing right posterior parietal and left posterior frontoparietal cortical infarct changes. Note the possibility of a small hyperacute infarct cannot be excluded. Follow-up MRI with diffusion imaging could be performed if necessary. Minor generalized volume loss. VENTRICLES: No obstructive hydrocephalus. CALVARIUM: No acute calvarial fractures. Old fracture deformity left lamina papyracea with collapse of several adjacent left-sided ethmoid air cells which are partially occupied by a herniated orbital fat PARANASAL SINUSES: Unremarkable as visualized. No significant inflammatory changes. MASTOID AIR CELLS: Unremarkable as visualized. No inflammatory changes. OTHER FINDINGS: None. IMPRESSION: No acute intracranial hemorrhage. Re- demonstrated are chronic appearing bilateral right parietal and left posterior frontoparietal infarct changes. Note that the possibility of a small hyperacute infarct cannot be excluded on this study Minor generalized volume loss.
--- NOTE | 2018-01-04 09:21 | CP.CCUPN ---
<BeatrizWilian - Last Filed: 01/04/18 09:15> CCU Subjective - Physician Review Subjective (Free Text): ICU Progress Note Pt seen and examined at bedside. No acute overnight events. Patient states that deficits have improved, but still feels off. Pt denies CP, SOB, n/v/d, abdominal pain, fever, chills, COBURN, or dizziness. CCU Objective - Vital Signs / Intake & Output Vital Signs (Last 4 hours): Vital Signs Pulse Resp BP Pulse Ox 01/04/18 09:01 69 16 150/92 H 96 01/04/18 09:00 72 21 98 01/04/18 08:50 73 18 141/95 H 96 01/04/18 08:48 67 21 99 01/04/18 08:20 70 17 97 01/04/18 08:10 72 22 97 01/04/18 08:00 72 147/83 99 01/04/18 07:50 70 27 H 99 01/04/18 07:40 59 L 19 100 01/04/18 07:30 63 22 127/76 100 01/04/18 07:20 64 22 100 01/04/18 07:10 63 20 100 01/04/18 07:00 65 18 126/69 100 01/04/18 06:50 63 19 100 01/04/18 06:40 64 20 100 01/04/18 06:30 66 22 126/74 100 01/04/18 06:20 63 18 97 01/04/18 06:10 64 18 98 01/04/18 06:00 63 20 135/75 98 01/04/18 05:50 77 98 01/04/18 05:40 64 18 99 01/04/18 05:30 84 17 121/81 98 01/04/18 05:20 61 17 99 Intake and Output (Last 8hrs): Intake & Output 01/03/18 01/04/18 01/04/18 22:59 06:59 14:59 Intake Total 1250 Output Total 2175 Balance -925 Weight 66.451 kg Intake: IV 1250 Left Forearm 0 Left Hand 0 Right Forearm 975 Oral 0 Tube Feeding 0 TPN/PPN 0 Blood Product 0 Lipid 0 Albumin 0 Other 0 Output: Urine 2175 Urine, Voided 2175 Stool 0 Urine/Stool Mix 0 Emesis 0 Oral Regurgitation 0 Other 0 Other: Voiding Method Urinal # Voids Urine, Voided 5 # Bowel Movements 0 - Physical Exam Head: Positive for: Atraumatic, Normocephalic Pupils: Positive for: PERRL Extroacular Muscles: Positive for: EOMI Conjunctiva: Positive for: Normal Ears: Positive for: Normal Mouth: Positive for: Moist Mucous Membranes Pharnyx: Positive for: Normal Nose (External): Positive for: Atraumatic Nose (Internal): Positive for: Normal Inspection Neck: Positive for: Normal Range of Motion Respiratory/Chest: Positive for: Clear to Auscultation, Good Air Exchange Cardiovascular: Positive for: Regular Rate and Rhythm Abdomen: Negative for: Tenderness, Distention, Normal Bowel Sounds, Peritoneal Signs, Rebound, Guarding, McBurney's Point Tender, Rovsing's Sign Present, Hernias, Feeding Tubes, Ostomy Tubes, Mass/Organomegaly, Scars, Other Back: Positive for: Normal Inspection Upper Extremity: Positive for: Normal Inspection Lower Extremity: Positive for: Normal Inspection Neurological: Positive for: GCS=15, CN II-XII Intact, Speech Normal, Motor Func Grossly Intact, Normal Sensory Function Skin: Positive for: Warm, Dry, Normal Color Psychiatric: Positive for: Alert, Oriented x 3, Normal Insight, Normal Concentration - Medications Active Medications: Active Medications Generic Name Dose Route Start Last Admin Trade Name Freq PRN Reason Stop Dose Admin Nicardipine HCl 20 mg in 200 mls @ 50 mls/hr 01/03/18 19:16 01/04/18 06:30 Cardene Iv Premix IV 0 mg/hr .Q4H PRN 0 mls/hr TITRATE PER MD ORDER Titration Protocol 5 MG/HR Sodium Chloride 1,000 mls @ 100 mls/hr 01/03/18 21:15 01/04/18 07:10 Sodium Chloride 0.45% IV 100 mls/hr .Q10H SILVIA Administration Nicotine 1 patch 01/04/18 10:00 Nicoderm Cq TD DAILY SILVIA Pantoprazole Sodium 40 mg 01/04/18 10:00 Protonix Inj IVP DAILY SILVIA - Patient Studies Lab Studies: Lab Studies 01/03/18 01/03/18 01/03/18 Range/Units 23:23 22:32 20:09 Urine Color Yellow (YELLOW) Urine Appearance Clear (CLEAR) Urine pH 6.5 (4.7-8.0) Ur Specific [place] 1.015 (1.005-1.035) Urine Protein Trace H (<30 mg/dL) mg/dL Urine Glucose (UA) Negative (NEGATIVE) mg/dL Urine Ketones Negative (NEGATIVE) mg/dL Urine Blood Trace-lysed H (NEGATIVE) Urine Nitrate Negative (NEGATIVE) Urine Bilirubin Negative (NEGATIVE) Urine Urobilinogen 0.2 (<1 E.U./dL) E.U./dL Ur Leukocyte Esterase Negative (NEGATIVE) Sagar/uL Urine RBC 2 - 5 (0-2) /hpf Urine WBC 0 - 2 (0-6) /hpf Ur Epithelial Cells None (0-5) /hpf Urine Bacteria Few (NEG) Urine Opiates Screen Negative (NEGATIVE) Urine Methadone Screen Negative (NEGATIVE) Ur Barbiturates Screen Negative (NEGATIVE) Ur Phencyclidine Scrn Negative (NEGATIVE) Ur Amphetamines Screen Negative (NEGATIVE) U Benzodiazepines Scrn Negative (NEGATIVE) U Oth Cocaine Metabols Negative (NEGATIVE) U Cannabinoids Screen Negative (NEGATIVE) Blood Type Confirm O POSITIVE Laboratory Results - last 24 hr 01/03/18 01/03/18 01/03/18 20:09 22:32 23:23 Urine Color Yellow Urine Appearance Clear Urine pH 6.5 Ur Specific [place] 1.015 Urine Protein Trace H Urine Glucose (UA) Negative Urine Ketones Negative Urine Blood Trace-lysed H Urine Nitrate Negative Urine Bilirubin Negative Urine Urobilinogen 0.2 Ur Leukocyte Esterase Negative Urine RBC 2 - 5 Urine WBC 0 - 2 Ur Epithelial Cells None Urine Bacteria Few Urine Opiates Screen Negative Urine Methadone Screen Negative Ur Barbiturates Screen Negative Ur Phencyclidine Scrn Negative Ur Amphetamines Screen Negative U Benzodiazepines Scrn Negative U Oth Cocaine Metabols Negative U Cannabinoids Screen Negative Blood Type Confirm O POSITIVE Critical Care Progress Note - Nutrition Nutrition: Nutrition Category Date Time Status Heart Healthy Diet [DIET] Diets 01/04/18 Breakfast Ordered Assessment/Plan - Assessment and Plan (Free Text) Assessment: Mr Elizabeth, 57 M, with PMHx active smoker of 1-2 PPD x 30 years, HTN, past heroine use 5 years ago, presented to ED c/o spell of confusion, R sided droop, right sided weakness and numbness with dysarthria. Pt was admitted to the ICU due to acute ischemic CVA s/p tPA. Plan: Neuro: - Follow up CT this AM stable, no acute hemorrhage - CTA head/neck negative - maintain nomothermia - neuro check q1 - seizure precaution - Echo with bubble study ordered - MRI brain ordered - No blood draws until 24 hrs s/p tPA (18:00 today) Lipid, A1C, TSH/Free T4 dsDNA, CHARLES, antiphospholipid ab, lupus ab, Cardiolipin Ab C function, S total/function, Anti-thrombin 3, Factor 5, 8 - smoking cessation counseling; nicoderm - UDS negative - PT/OT eval and treat - Neuro consulted Pulm - Maintain PaO2 above 95%; O2 as needed CV - cardene gtt - Maintain BP 140-150/70 GI - Heart healthy diet - Protonix for DVT PPx Renal - Strict i/o - No shetty to prevent bleeding Endo - maintain euglycemic 140 - Pending TSH, A1C, lipid Heme - S/p TPA - SCD for DVT prophylaxis ID: - Panculture ordered today at 18:00 Pt seen and discussed in detail with Dr. Awad. Demian Henderson, PGY1 <Mike Avila - Last Filed: 01/04/18 10:19> CCU Objective - Vital Signs / Intake & Output Vital Signs (Last 4 hours): Vital Signs Pulse Resp BP Pulse Ox 01/04/18 09:01 69 16 150/92 H 96 01/04/18 09:00 72 21 98 01/04/18 08:50 73 18 141/95 H 96 01/04/18 08:48 67 21 99 01/04/18 08:20 70 17 97 01/04/18 08:10 72 22 97 01/04/18 08:00 72 147/83 99 01/04/18 07:50 70 27 H 99 01/04/18 07:40 59 L 19 100 01/04/18 07:30 63 22 127/76 100 01/04/18 07:20 64 22 100 01/04/18 07:10 63 20 100 01/04/18 07:00 65 18 126/69 100 01/04/18 06:50 63 19 100 01/04/18 06:40 64 20 100 01/04/18 06:30 66 22 126/74 100 01/04/18 06:20 63 18 97 Intake and Output (Last 8hrs): Intake & Output 01/03/18 01/04/18 01/04/18 22:59 06:59 14:59 Intake Total 1250 Output Total 2175 Balance -925 Weight 146 lb 8 oz Intake: IV 1250 Left Forearm 0 Left Hand 0 Right Forearm 975 Oral 0 Tube Feeding 0 TPN/PPN 0 Blood Product 0 Lipid 0 Albumin 0 Other 0 Output: Urine 2175 Urine, Voided 2175 Stool 0 Urine/Stool Mix 0 Emesis 0 Oral Regurgitation 0 Other 0 Other: Voiding Method Urinal # Voids Urine, Voided 5 # Bowel Movements 0 - Medications Active Medications: Active Medications Generic Name Dose Route Start Last Admin Trade Name Freq PRN Reason Stop Dose Admin Nicardipine HCl 20 mg in 200 mls @ 50 mls/hr 01/03/18 19:16 01/04/18 06:30 Cardene Iv Premix IV 0 mg/hr .Q4H PRN 0 mls/hr TITRATE PER MD ORDER Titration Protocol 5 MG/HR Sodium Chloride 1,000 mls @ 100 mls/hr 01/03/18 21:15 01/04/18 07:10 Sodium Chloride 0.45% IV 100 mls/hr .Q10H SILVIA Administration Nicotine 1 patch 01/04/18 10:00 Nicoderm Cq TD DAILY SILVIA Pantoprazole Sodium 40 mg 01/04/18 10:00 Protonix Inj IVP DAILY SIVLIA - Patient Studies Lab Studies: Lab Studies 01/03/18 01/03/18 01/03/18 Range/Units 23:23 22:32 20:09 Urine Color Yellow (YELLOW) Urine Appearance Clear (CLEAR) Urine pH 6.5 (4.7-8.0) Ur Specific [place] 1.015 (1.005-1.035) Urine Protein Trace H (<30 mg/dL) mg/dL Urine Glucose (UA) Negative (NEGATIVE) mg/dL Urine Ketones Negative (NEGATIVE) mg/dL Urine Blood Trace-lysed H (NEGATIVE) Urine Nitrate Negative (NEGATIVE) Urine Bilirubin Negative (NEGATIVE) Urine Urobilinogen 0.2 (<1 E.U./dL) E.U./dL Ur Leukocyte Esterase Negative (NEGATIVE) Sagar/uL Urine RBC 2 - 5 (0-2) /hpf Urine WBC 0 - 2 (0-6) /hpf Ur Epithelial Cells None (0-5) /hpf Urine Bacteria Few (NEG) Urine Opiates Screen Negative (NEGATIVE) Urine Methadone Screen Negative (NEGATIVE) Ur Barbiturates Screen Negative (NEGATIVE) Ur Phencyclidine Scrn Negative (NEGATIVE) Ur Amphetamines Screen Negative (NEGATIVE) U Benzodiazepines Scrn Negative (NEGATIVE) U Oth Cocaine Metabols Negative (NEGATIVE) U Cannabinoids Screen Negative (NEGATIVE) Blood Type Confirm O POSITIVE Laboratory Results - last 24 hr 01/03/18 01/03/18 01/03/18 20:09 22:32 23:23 Urine Color Yellow Urine Appearance Clear Urine pH 6.5 Ur Specific [place] 1.015 Urine Protein Trace H Urine Glucose (UA) Negative Urine Ketones Negative Urine Blood Trace-lysed H Urine Nitrate Negative Urine Bilirubin Negative Urine Urobilinogen 0.2 Ur Leukocyte Esterase Negative Urine RBC 2 - 5 Urine WBC 0 - 2 Ur Epithelial Cells None Urine Bacteria Few Urine Opiates Screen Negative Urine Methadone Screen Negative Ur Barbiturates Screen Negative Ur Phencyclidine Scrn Negative Ur Amphetamines Screen Negative U Benzodiazepines Scrn Negative U Oth Cocaine Metabols Negative U Cannabinoids Screen Negative Blood Type Confirm O POSITIVE Critical Care Progress Note - Nutrition Nutrition: Nutrition Category Date Time Status Heart Healthy Diet [DIET] Diets 01/04/18 Breakfast Ordered Assessment/Plan - Assessment and Plan (Free Text) Plan: Patient seen and examined on rounds with resident, agree with note with following additions/exceptions: patient is 57yo male PMHx of HTN, cocaine use in past, presented with acute R weakness, and dysarthria, s/p TPA. Pt currently afebrile, HD stable, comfortable in NAD, motor strength 5/5 all ext, symptoms resolved. Doing well Repeat CT head negative for ICH. Acute CVA HTN Recommend: - supp o2 as needed - panculture - BP control - neuro checks - echo with bubble - check lipid panel, TSH, HgbA1C - MRI/MRA - neurology follow up - no blood draws, shetty for 24h - monitor in MICU
--- NOTE | 2018-01-04 15:08 | CARD ---
APPROVED REPORT EXAM: Two-dimensional and M-mode echocardiogram with Doppler and color Doppler. INDICATION CVA/TIA 2D DIMENSIONS Left Atrium (2D)4.2 (1.6-4.0cm)IVSd1.3 (0.7-1.1cm) LVDd5.9 (3.9-5.9cm)PWd1.4 (0.7-1.1cm) LVDs5.3 (2.5-4.0cm)FS (%) 10.5 % LVEF (%)22.5 (>50%) M-Mode DIMENSIONS Aortic Root3.40 (2.2-3.7cm)Aortic Cusp Exc.1.80 (1.5-2.0cm) Aortic Valve AoV Peak Difocpfo585.0cm/Alondra Peak GR.6mmHg Mitral Valve MV E Oehjgmep11.2cm/sMV A Rkirrghl77.9cm/sE/A ratio0.6 TDI E/Lateral E'0.0E/Medial E'0.0 Tricuspid Valve TR Peak [id number] [id number] Peak Gr.16mmHg [id number] LEFT VENTRICLE The Left Ventricle is mildly dilated. There is borderline concentric left ventricular hypertrophy. The systolic function is severely impaired. There is global hypokinesis of the left ventricle. Transmitral Doppler flow pattern is Grade I-abnormal relaxation pattern. No left ventricle thrombus noted on this study. RIGHT VENTRICLE The right ventricle is normal size. There is normal right ventricular wall thickness. The right ventricular systolic function is normal. ATRIA The left atrium is borderline dilated. The right atrium size is normal. The interatrial septum is intact with no evidence for an atrial septal defect. AORTIC VALVE The aortic valve is mildly thickened. No aortic regurgitation is present. There is no aortic valvular stenosis. MITRAL VALVE Mitral regurgitation is mild. GREAT VESSELS The aortic root is normal in size. PERICARDIAL EFFUSION There is a trace loculated anterior pericardial effusion. <Conclusion> The Left Ventricle is mildly dilated. There is borderline concentric left ventricular hypertrophy. The systolic function is severely impaired. There is global hypokinesis of the left ventricle. Transmitral Doppler flow pattern is Grade I-abnormal relaxation pattern. No left ventricle thrombus noted on this study. Mitral regurgitation is mild. The interatrial septum is intact with no evidence for an atrial septal defect.
--- NOTE | 2018-01-04 16:21 | MRI ---
PROCEDURE: MRI of the brain dated 01/04/2018. HISTORY: Stroke COMPARISON: Comparison made with prior CT scan and CTA brain obtained earlier same day TECHNIQUE: Multiplanar, multisequence MR images of the brain were obtained without intravenous contrast enhancement. FINDINGS: HEMORRHAGE: There are curvilinear dark T2 signal changes along some portions of the affected cortex of uncertain etiology though the changes could be related to some residual iodinated contrast from prior CTA of the neck and brain due to vascular stasis as no definitive hemorrhage seen in this location on CT scan. Recommend follow-up CT scan at interval recommended to assess for hemorrhagic degradation DWI: There are acute infarct changes seen in the left parietal operculum region and in the left which extends inferiorly and anteriorly into the left posterior subinsular region and superiorly into the left posterior parietal cortex. BRAIN PARENCHYMA: Chronic right posterior temporoparietal watershed zone cortical infarct again noted. In addition, there are several tiny focal areas of increased T2 signal scattered about deep and subcortical white matter both cerebral hemispheres. . VENTRICLES: Unremarkable. No hydrocephalus. CRANIUM: No calvarial abnormalities. Acute hemorrhagic degradation acute infarct dark T2 signal on GRE sequence ORBITS: Grossly unremarkable. PARANASAL SINUSES/MASTOIDS: Clear VASCULAR SYSTEM: Major vascular flow voids at skull base patent. OTHER FINDINGS: None. IMPRESSION: Acute infarct changes seen in the left lung parietal operculum region extending anteriorly and inferiorly into the left posterior subinsular cortex as well as superiorly near the vertex. There are curvilinear areas of very dark T2 signal seen on gradient echo weighted sequence along some portions of the affected cortex which is of uncertain etiology though could represent some residual iodinated contrast material from prior CTA of the neck and brain due to some vascular stasis as no definitive hemorrhage seen in this location on CT scan. Follow-up of CT scan recommended to confirm and exclude any hemorrhagic degradation. Note these findings were discussed with ICU Nurse Chad at approximately 3:40 p.m. with written down and read back verification.
[2018-01-04 21:00] LABS: BASO # 0.02 K/mm3 (0.0-2.0); BASO % 0.3 % (0.0-3.0); EOS # 0.1 (0.0-0.7); EOS % 1.7 % (1.5-5.0); GRAN # 2.17 (1.4-6.5); GRAN % 37.7 % (50.0-68.0); HEMOGLOBIN 13.7 g/dL (14.0-18.0); LYMPH % 51.4 % (22.0-35.0); MEAN CELL VOLUME 83.8 fl (80.0-105.0); MEAN CORPUSCULAR HGB CONC 33.4 g/dl (31.0-37.0); MEAN PLATELET VOLUME 10.2 fl (7.0-11.0); MONO # 0.5 (0.1-0.6); MONO % 8.9 % (1.0-6.0); RBC 4.89 10^6/uL (3.5-6.1); RED CELL DISTRIBUTION WIDTH 14.2 % (11.5-14.5); WHITE BLOOD COUNT 5.8 10^3/ul (4.5-11.0)
[2018-01-04 21:12] LABS: ALB/GLOB RATIO 1.2 (1.1-1.8); ALBUMIN 3.6 g/dL (3.0-4.8); ALT/SGPT 28 U/L (7-56); AST/SGOT 35 U/L (17-59); BLOOD UREA NITROGEN 12 mg/dL (7-21); CALCIUM 9.1 mg/dL (8.4-10.5); GFR AFRICAN-AMERICAN > 60; GFR NON-AFRICAN AMERICAN > 60; HDL CHOLESTEROL 43 mg/dL (29-60)
[2018-01-04 21:19] LABS: LDL CHOLESTEROL 61 mg/dL (0-129)
[2018-01-04 21:26] LABS: FREE T4 1.14 ng/dL (0.78-2.19)
[2018-01-05] MEDS: Sodium Chloride 0.45% 1,000 ML IV SCH (05:49)
[2018-01-05 07:53] LABS: BASO # 0.01 K/mm3 (0.0-2.0); BASO % 0.2 % (0.0-3.0); EOS # 0.1 (0.0-0.7); EOS % 1.2 % (1.5-5.0); GRAN # 3.47 (1.4-6.5); GRAN % 53.7 % (50.0-68.0); HEMOGLOBIN 14.3 g/dL (14.0-18.0); LYMPH # 2.2 (1.2-3.4); LYMPH % 33.9 % (22.0-35.0); MEAN CELL VOLUME 83.2 fl (80.0-105.0); MEAN CORPUSCULAR HEMOGLOBIN 28.3 pg (25.0-35.0); MEAN PLATELET VOLUME 10.8 fl (7.0-11.0); MONO # 0.7 (0.1-0.6); RBC 5.05 10^6/uL (3.5-6.1); RED CELL DISTRIBUTION WIDTH 14.2 % (11.5-14.5); WHITE BLOOD COUNT 6.5 10^3/ul (4.5-11.0)
[2018-01-05 08:02] LABS: ALB/GLOB RATIO 1.3 (1.1-1.8); ALBUMIN 3.6 g/dL (3.0-4.8); ALT/SGPT 26 U/L (7-56); AST/SGOT 29 U/L (17-59); BLOOD UREA NITROGEN 11 mg/dL (7-21); CALCIUM 9.3 mg/dL (8.4-10.5); GFR AFRICAN-AMERICAN > 60; GFR NON-AFRICAN AMERICAN > 60
--- NOTE | 2018-01-05 08:40 | CP.PCM.PN ---
Subjective - Date & Time of Evaluation Date of Evaluation: 01/05/18 Time of Evaluation: 09:15 - Subjective Subjective: PGY2 Progress note for Dr. Hall Patients seen and examined at bedside. Nursing reports no acute events overnight. Patient was resting comfortably in bed. He reports his sensation in his right forearm and hand is back as is his strength. Patient denied acute complaints of headache, dizziness, chest pain, palpitations, SOB, cough, abd pain, nausea, vomiting, bowel/bladder complaints, pain/swelling in his legs b/ l. Patient was counseled thoroughly on the importance of tobacco cessation which he said he understood. Objective - Vital Signs/Intake and Output Vital Signs (last 24 hours): Temp Pulse Resp BP Pulse Ox 97.4 F L 77 28 H 154/116 H 97 01/04/18 16:00 01/05/18 06:30 01/05/18 06:30 01/05/18 06:04 01/05/18 06:30 Intake and Output: 01/05/18 01/05/18 06:59 18:59 Intake Total 3200 Output Total 2500 Balance 700 - Medications Medications: Current Medications Hydralazine HCl (Apresoline) 10 mg IVP Q6 PRN PRN Reason: Systolic Blood Pressure Last Admin: 01/05/18 06:04 Dose: 10 mg Nicardipine HCl (Cardene Iv Premix) 20 mg in 200 mls @ 50 mls/hr IV .Q4H PRN; Protocol; 5 MG/HR PRN Reason: TITRATE PER MD ORDER Last Titration: 01/04/18 06:30 Dose: 0 mg/hr, 0 mls/hr Sodium Chloride (Sodium Chloride 0.45%) 1,000 mls @ 100 mls/hr IV .Q10H SILVIA Last Admin: 01/05/18 05:49 Dose: 100 mls/hr Nicotine (Nicoderm Cq) 1 patch TD DAILY SILVIA Last Admin: 01/04/18 10:36 Dose: 1 patch Pantoprazole Sodium (Protonix Inj) 40 mg IVP DAILY SILVIA Last Admin: 01/04/18 10:36 Dose: 40 mg - Labs Labs: 01/05/18 06:00 01/05/18 06:00 PT 12.0 SECONDS (9.4-12.5) 01/03/18 16:59 INR 1.05 (0.93-1.08) 01/03/18 16:59 APTT 31.7 Seconds (25.1-36.5) 01/03/18 16:59 - Constitutional Appears: Non-toxic, No Acute Distress - Head Exam Head Exam: ATRAUMATIC, NORMAL INSPECTION, NORMOCEPHALIC - Eye Exam Eye Exam: EOMI, Normal appearance, PERRL. absent: Conjunctival injection, Scleral icterus - ENT Exam ENT Exam: Mucous Membranes Moist - Neck Exam Neck Exam: Full ROM - Respiratory Exam Respiratory Exam: NORMAL BREATHING PATTERN. absent: Accessory Muscle Use, Respiratory Distress - Cardiovascular Exam Cardiovascular Exam: +S1, +S2 - GI/Abdominal Exam GI & Abdominal Exam: Soft. absent: Tenderness - Rectal Exam Rectal Exam: Deferred - Extremities Exam Extremities Exam: Normal Capillary Refill, Normal Inspection. absent: Pedal Edema - Neurological Exam Neurological Exam: Alert, Awake, CN II-XII Intact, Normal Gait, Oriented x3 Additional comments: agraphia resolved in R hand no aphasia no dysarthria - Psychiatric Exam Psychiatric exam: Normal Affect, Normal Mood - Skin Skin Exam: Dry, Intact, Normal Color, Warm Assessment and Plan - Assessment and Plan (Free Text) Assessment: 57yo male PMhx HTN, cocaine user, ex smoker presented with R sided weakness and facial droop. Code Stroke was called in the ED and patient was given tPA and transferred to MICU for monitoring Plan: -maintain SBP 120-140mmHg -patient off cardene gtt and on hydralazine prn -f/u hypercoag work up -MRI brain: acute infarct changes seen in the left parietal operculum region extending anteriorly and iferiorly into the left posterior subinsular cortex as well as superiorly near the vertex. -Echo with bubble: borderline LVH, systolic function is severely impaired. Global hypokiesis of the LV. Grade I abnl relxation pattern. No left ventricle thrombus noted on this study. Mitral regurg is mild. Interatrial septum is intact with no evidence of an ASD. EF 22.5% -CT head this AM s/p tPA yesterday: no acute intracranial hemorrhage. Re- demonstrated are chronic appearing b/l R parietal and L posterior frontoparietal infarct changes. Note that the possibility of a small hyperacute infarct cannot be excluded on this study. Minor generalized volume loss. -CTA head/neck: unremarkable -CT head on admission: probable chronic infarcts in R parietal and L posterior frontal lobes -PT/OT -recommend speech therapy -Smoking cessation and Drug counseling -Aspiration and Seizure precautions -Neuro checks -HoB above 30 degrees -recommend BP control and CHF medication regimen -Continue management as per medicine team Discussed with Dr. Rafael Roy PGY2
--- NOTE | 2018-01-05 11:33 | CP.PCM.PN ---
<Barber Hatch - Last Filed: 01/05/18 14:28> Subjective - Date & Time of Evaluation Date of Evaluation: 01/05/18 Time of Evaluation: 07:20 - Subjective Subjective: Hospitalist Service: Patient seen and examined at bedtime. Patient reports weakness has resolved, but sensory changes still present in right hand and forearm. Nurse reports no adverse events overnight. Objective - Vital Signs/Intake and Output Vital Signs (last 24 hours): Temp Pulse Resp BP Pulse Ox 97.4 F L 77 28 H 154/116 H 97 01/04/18 16:00 01/05/18 06:30 01/05/18 06:30 01/05/18 06:04 01/05/18 06:30 Intake and Output: 01/05/18 01/05/18 06:59 18:59 Intake Total 3200 Output Total 2500 Balance 700 - Medications Medications: Current Medications Hydralazine HCl (Apresoline) 10 mg IVP Q6 PRN PRN Reason: Systolic Blood Pressure Last Admin: 01/05/18 06:04 Dose: 10 mg Nicardipine HCl (Cardene Iv Premix) 20 mg in 200 mls @ 50 mls/hr IV .Q4H PRN; Protocol; 5 MG/HR PRN Reason: TITRATE PER MD ORDER Last Titration: 01/04/18 06:30 Dose: 0 mg/hr, 0 mls/hr Lisinopril (Zestril) 10 mg PO DAILY [facility] Nicotine (Nicoderm Cq) 1 patch TD DAILY [facility] Last Admin: 01/05/18 09:43 Dose: 1 patch Pantoprazole Sodium (Protonix Inj) 40 mg IVP DAILY [facility] Last Admin: 01/05/18 09:43 Dose: 40 mg - Labs Labs: 01/05/18 06:00 01/05/18 06:00 PT 12.0 SECONDS (9.4-12.5) 01/03/18 16:59 INR 1.05 (0.93-1.08) 01/03/18 16:59 APTT 31.7 Seconds (25.1-36.5) 01/03/18 16:59 - Constitutional Appears: Well, Non-toxic - Head Exam Head Exam: ATRAUMATIC, NORMOCEPHALIC - Eye Exam Eye Exam: EOMI, Normal appearance - ENT Exam ENT Exam: Mucous Membranes Moist - Neck Exam Neck Exam: Normal Inspection - Respiratory Exam Respiratory Exam: Clear to Ausculation Bilateral, NORMAL BREATHING PATTERN. absent: Accessory Muscle Use - Cardiovascular Exam Cardiovascular Exam: RRR, +S1, +S2 - GI/Abdominal Exam GI & Abdominal Exam: Soft, Normal Bowel Sounds - Extremities Exam Extremities Exam: Normal Inspection. absent: Calf Tenderness - Back Exam Back Exam: NORMAL INSPECTION. absent: CVA tenderness (L), CVA tenderness (R) - Neurological Exam Neurological Exam: Alert, Awake, Oriented x3 - Psychiatric Exam Psychiatric exam: Normal Affect, Normal Mood - Skin Skin Exam: Dry, Intact, Normal Color, Warm Assessment and Plan - Assessment and Plan (Free Text) Assessment: Mr Elizabeth, 57 M, with PMHx active smoker of 1-2 PPD x 30 years, HTN, past heroin use 5 years ago, presented to ED c/o spell of confusion, R sided droop, right sided weakness and numbness with dysarthria, started at 3:06pm, 30 minutes before coming to the ER . CT head showed hypodensity in R parietal and L posterior frontal lobe, possibly chronic. No mass or edema. He was deemed TPA candidate, and received TPA bolus. 1) Stroke - MRI shows acute infarct changes seen in the left lung parietal operculum region extending anteriorly and inferiorly into the left posterior subinsular cortex as well as superiorly near the vertex. There are curvilinear areas of very dark T2 signal seen on gradient echo weighted sequence along some portions of the affected cortex which is of uncertain etiology though could represent some residual iodinated contrast material from prior CTA of the neck and brain due to some vascular stasis as no definitive hemorrhage seen in this location on CT scan. Follow-up of CT scan recommended to confirm and exclude any hemorrhagic degradation. Note these findings were discussed with ICU Nurse Chad at approximately 3:40 p.m. with written down and read back verification. 2) Systolic HF with reduced EF Transthoracic echcoardiogram with bubble study: Borderline LVH, systolic function is severely impaired. Global hypokinesis of the LV. Grade I abnormal relaxation pattern. No left ventricle thrombus noted on this study. Mitral regurgitation is mild. Interatrial septum is intact with no evidence of an ASD. LVEF 22.5% - Cardiology consulted, Dr. Pearson - Lisinopril 10 mg - Hydralazine 10 mg q6 PRN for SBP greater than 165 and DBP greater than 105 3) Smoking cessation - Nicotine patch - smoking cessation counseling 4) GI/DVT prophylaxis - Protonix 40 mg PO daily - SCD Case reviewed and discussed with Dr. Workman <Flex Workman - Last Filed: 01/06/18 15:53> Objective - Vital Signs/Intake and Output Vital Signs (last 24 hours): Temp Pulse Resp BP Pulse Ox 98.3 F 78 18 137/84 96 01/06/18 06:00 01/06/18 10:00 01/06/18 06:00 01/06/18 09:23 01/06/18 06:00 Intake and Output: 01/06/18 01/06/18 06:59 18:59 Intake Total 200 600 Balance 200 600 - Labs Labs: 01/06/18 05:45 01/06/18 05:45 PT 12.0 SECONDS (9.4-12.5) 01/03/18 16:59 INR 1.05 (0.93-1.08) 01/03/18 16:59 APTT 31.7 Seconds (25.1-36.5) 01/03/18 16:59 Attending/Attestation - Attestation I have personally seen and examined this patient.: Yes I have fully participated in the care of the patient.: Yes I have reviewed all pertinent clinical information, including history, physical exam and plan: Yes Notes (Text): 01/06/18 15:48 Medical record note made by the resident after discussion with my direction and input after the patient was personally seen and examined by me. I have reviewed the chart and agree that the record accurately reflects by personal performance of the history, physical exam, data review, and medical decision-making, in the course for the patient. I have also personally directed the plan of care. 57 male with PMH of HTN, cocaine user, ex smoker presented with R sided weakness and facial droop. Code Stroke was called in the ED and patient was given tPA and transferred to MICU for monitoring. MRI of Brain showedAcute infarct changes seen in the left lung parietal operculum region extending anteriorly and inferiorly into the left posterior subinsular cortex as well as superiorly near the vertex. Patient right sided weakness has resolved.He still has sensory deficit in right upper extremities. Blood pressure is better controlled.He is off Cardizem drip.Echo showed EF 22%, patient is euvolemic.We will start patient on Lisinopril.We will also get cardiology evaluation. MRI finding and Echo finding were discussed with patient. Management plan was discussed in detail with patient. Education was provided.
[2018-01-05 18:01] VITALS: O2SAT 96
[2018-01-06 06:55] LABS: BASO # 0.01 K/mm3 (0.0-2.0); BASO % 0.1 % (0.0-3.0); EOS # 0.1 (0.0-0.7); GRAN # 3.31 (1.4-6.5); GRAN % 47.7 % (50.0-68.0); HEMOGLOBIN 13.8 g/dL (14.0-18.0); LYMPH # 2.6 (1.2-3.4); LYMPH % 36.9 % (22.0-35.0); MEAN CELL VOLUME 83.7 fl (80.0-105.0); MEAN CORPUSCULAR HEMOGLOBIN 27.8 pg (25.0-35.0); MEAN CORPUSCULAR HGB CONC 33.3 g/dl (31.0-37.0); MEAN PLATELET VOLUME 10.4 fl (7.0-11.0); MONO % 14.3 % (1.0-6.0); RBC 4.96 10^6/uL (3.5-6.1); RED CELL DISTRIBUTION WIDTH 14.4 % (11.5-14.5); WHITE BLOOD COUNT 6.9 10^3/ul (4.5-11.0)
[2018-01-06] MEDS ORDERED: Pantoprazole 40 mg EC Tab PO SCH (07:30)
[2018-01-06 07:34] LABS: ALB/GLOB RATIO 1.2 (1.1-1.8); ALBUMIN 3.6 g/dL (3.0-4.8); ALT/SGPT 30 U/L (7-56); AST/SGOT 38 U/L (17-59); BLOOD UREA NITROGEN 14 mg/dL (7-21); GFR AFRICAN-AMERICAN > 60; GFR NON-AFRICAN AMERICAN 57
--- NOTE | 2018-01-06 08:14 | CP.PCM.PN ---
Subjective - Date & Time of Evaluation Date of Evaluation: 01/06/18 Time of Evaluation: 07:30 - Subjective Subjective: PGY2 Neuro Progress note for Dr. Hall Patient seen and examined at bedside. Nursing reports no acute events overnight. Patient reported he felt well and was eager to go home. Reported intact sensation and felt strong in all extremities. Denied acute complaints of fever, chills, headache, dizziness, chest pain, palpitations, SOB, cough, abd pain, nausea, vomiting, bowel/bladder complaints, pain/swelling in his legs bilaterally. Is eating well and working with PT. Objective - Vital Signs/Intake and Output Vital Signs (last 24 hours): Temp Pulse Resp BP Pulse Ox 98.0 F 83 20 148/85 96 01/05/18 18:01 01/06/18 06:00 01/05/18 18:01 01/05/18 18:01 01/05/18 18:01 Intake and Output: 01/06/18 01/06/18 06:59 18:59 Intake Total 200 Balance 200 - Medications Medications: Current Medications Hydralazine HCl (Apresoline) 10 mg IVP Q6 PRN PRN Reason: Systolic Blood Pressure Last Admin: 01/05/18 06:04 Dose: 10 mg Nicardipine HCl (Cardene Iv Premix) 20 mg in 200 mls @ 50 mls/hr IV .Q4H PRN; Protocol; 5 MG/HR PRN Reason: TITRATE PER MD ORDER Last Titration: 01/04/18 06:30 Dose: 0 mg/hr, 0 mls/hr Lisinopril (Zestril) 10 mg PO DAILY [facility] Last Admin: 01/05/18 13:21 Dose: 10 mg Nicotine (Nicoderm Cq) 1 patch TD DAILY [facility] Last Admin: 01/05/18 09:43 Dose: 1 patch Pantoprazole Sodium (Protonix Ec Tab) 40 mg PO ACB [facility] - Labs Labs: 01/06/18 05:45 01/06/18 05:45 PT 12.0 SECONDS (9.4-12.5) 01/03/18 16:59 INR 1.05 (0.93-1.08) 01/03/18 16:59 APTT 31.7 Seconds (25.1-36.5) 01/03/18 16:59 - Constitutional Appears: Non-toxic, No Acute Distress - Head Exam Head Exam: ATRAUMATIC, NORMAL INSPECTION, NORMOCEPHALIC - Eye Exam Eye Exam: EOMI, Normal appearance, PERRL. absent: Conjunctival injection, Scleral icterus Pupil Exam: NORMAL ACCOMODATION, PERRL - ENT Exam ENT Exam: Mucous Membranes Moist - Neck Exam Neck Exam: Full ROM, Normal Inspection - Respiratory Exam Respiratory Exam: NORMAL BREATHING PATTERN. absent: Accessory Muscle Use, Respiratory Distress - Cardiovascular Exam Cardiovascular Exam: +S1, +S2 - GI/Abdominal Exam GI & Abdominal Exam: Soft. absent: Tenderness - Rectal Exam Rectal Exam: Deferred - Extremities Exam Extremities Exam: Normal Capillary Refill, Normal Inspection - Neurological Exam Neurological Exam: Alert, Awake, CN II-XII Intact Neuro motor strength exam: Left Upper Extremity: 5, Right Upper Extremity: 5, Left Lower Extremity: 5, Right Lower Extremity: 5 Additional comments: sensation intact in all 4 extremities agraphia resolved in R hand no aphasia no dysarthria - Psychiatric Exam Psychiatric exam: Normal Affect, Normal Mood - Skin Skin Exam: Dry, Intact, Normal Color, Warm Assessment and Plan - Assessment and Plan (Free Text) Assessment: 57yo male PMhx HTN, cocaine user, ex smoker presented with R sided weakness and facial droop. Code Stroke was called in the ED and patient was given tPA and transferred to MICU for monitoring. Now transferred to TELE for further work up. Plan: -start asa 81mg qdaily -recommend eliquis in light of the fact that patient has a very low ef and is in heart failure. This points to a possible embolus that is cardiogenic and it would be advisable for this patient to be on anticoagulation. -maintain SBP 120-140mmHg -f/u hypercoag work up -MRI brain: acute infarct changes seen in the left parietal operculum region extending anteriorly and iferiorly into the left posterior subinsular cortex as well as superiorly near the vertex. -Echo with bubble: borderline LVH, systolic function is severely impaired. Global hypokiesis of the LV. Grade I abnl relxation pattern. No left ventricle thrombus noted on this study. Mitral regurg is mild. Interatrial septum is intact with no evidence of an ASD. EF 22.5% -CT head this AM s/p tPA yesterday: no acute intracranial hemorrhage. Re- demonstrated are chronic appearing b/l R parietal and L posterior frontoparietal infarct changes. Note that the possibility of a small hyperacute infarct cannot be excluded on this study. Minor generalized volume loss. -CTA head/neck: unremarkable -CT head on admission: probable chronic infarcts in R parietal and L posterior frontal lobes -PT/OT -recommend speech therapy -Smoking cessation and Drug counseling -Aspiration and Seizure precautions -Neuro checks -HoB above 30 degrees -Continue management as per medicine team Discussed with Dr. Rafael Roy PGY2 -after cardiac work up patient may be dc home
[2018-01-06 09:27] VITALS: BP 137/84; PULSE 78
[2018-01-06 09:42] VITALS: RESP 18; TEMP 98.3
--- NOTE | 2018-01-06 13:13 | CON ---
DATE: 01/06/2018 CARDIOLOGY CONSULTATION HISTORY: The patient is a 57-year-old male who presented with a CVA, treated with tPA with improvement. Echocardiogram reveals a severe dilated cardiomyopathy with an ejection fraction of 25%. The patient's cardiac risk factors include hypertension, in which he was unaware and on no medications. The patient is an active smoker. No previous cardiac history is noted. No chest pain. No shortness of breath. SOCIAL HISTORY He is an active smoker. REVIEW OF SYSTEMS: The 14-point review of systems was reviewed in detail. No cardiac symptoms are noted. PHYSICAL EXAMINATION: VITAL SIGNS: Blood pressure 137/84, heart rate in the 70s. NECK: Negative JVD. LUNGS: Without rales. HEART: S1, S2. EXTREMITIES: Without edema. LABORATORY DATA: BUN and creatinine unremarkable. Troponin is negative x1. Hemoglobin is 13.8. Echocardiogram reveals a depressed LV function. EKG reveals normal sinus rhythm with a with an old inferior wall AZ with diffuse ST-T changes. IMPRESSION: 1. Status post cerebrovascular accident, treated with tissue plasminogen activator. 2. Hypertension. 3. Dilated cardiomyopathy. 4. Evidence for an inferior wall myocardial infarction in the past on electrocardiogram. 5. Nicotine addiction. Given these findings, I have discussed with the patient and a relative about the findings on the echocardiogram. I have discussed with the patient about his need to stop smoking, the probability for CAD is high. I have advised the patient that after he recovers from his CVA, he will need to follow up with investigation into his cardiac status and his poor LV function. Suresh Pearson MD
[2018-01-06 14:28] LABS: CARDIOLIPIN AB (IGA) <11 APL (<=11)
--- NOTE | 2018-01-06 14:29 | CP.PCM.DIS ---
<Barber Hatch - Last Filed: 01/06/18 15:15> Provider - Provider Date of Admission: 01/03/18 19:14 Attending physician: Flex Workman MD Consults: Dr. Rafael Pearson Time Spent in preparation of Discharge (in minutes): 35 Hospital Course - Lab Results Lab Results: Micro Results 01/04/18 20:45 Blood-Venous Blood Culture - Preliminary NO GROWTH AFTER 24 HOURS 01/04/18 20:30 Blood-Venous Blood Culture - Preliminary NO GROWTH AFTER 24 HOURS 01/03/18 21:22 Naris MRSA Culture (Admit) - Final MRSA NOT DETECTED 01/03/18 23:23 Urine,Clean Catch Urine Culture - Final No Growth (<1,000 CFU/ML) Most Recent Lab Values WBC 6.9 10^3/ul (4.5-11.0) 01/06/18 05:45 RBC 4.96 10^6/uL (3.5-6.1) 01/06/18 05:45 Hgb 13.8 g/dL (14.0-18.0) L 01/06/18 05:45 Hct 41.5 % (42.0-52.0) L 01/06/18 05:45 MCV 83.7 fl (80.0-105.0) 01/06/18 05:45 MCH 27.8 pg (25.0-35.0) 01/06/18 05:45 MCHC 33.3 g/dl (31.0-37.0) 01/06/18 05:45 RDW 14.4 % (11.5-14.5) 01/06/18 05:45 Plt Count 211 10^3/uL (120.0-450.0) 01/06/18 05:45 MPV 10.4 fl (7.0-11.0) 01/06/18 05:45 Gran % 47.7 % (50.0-68.0) L 01/06/18 05:45 Lymph % (Auto) 36.9 % (22.0-35.0) H 01/06/18 05:45 Potter % (Auto) 14.3 % (1.0-6.0) H 01/06/18 05:45 Eos % (Auto) 1.0 % (1.5-5.0) L 01/06/18 05:45 Baso % (Auto) 0.1 % (0.0-3.0) 01/06/18 05:45 Gran # 3.31 (1.4-6.5) 01/06/18 05:45 Lymph # (Auto) 2.6 (1.2-3.4) 01/06/18 05:45 Potter # (Auto) 1.0 (0.1-0.6) H 01/06/18 05:45 Eos # (Auto) 0.1 (0.0-0.7) 01/06/18 05:45 Baso # (Auto) 0.01 K/mm3 (0.0-2.0) 01/06/18 05:45 PT 12.0 SECONDS (9.4-12.5) 01/03/18 16:59 INR 1.05 (0.93-1.08) 01/03/18 16:59 APTT 31.7 Seconds (25.1-36.5) 01/03/18 16:59 Sodium 144 mmol/L (132-148) 01/06/18 05:45 Potassium 3.9 mmol/L (3.6-5.0) 01/06/18 05:45 Chloride 110 mmol/L (98-107) H 01/06/18 05:45 Carbon Dioxide 24 mmol/L (21-33) 01/06/18 05:45 Anion Gap 13 (10-20) 01/06/18 05:45 BUN 14 mg/dL (7-21) 01/06/18 05:45 Creatinine 1.3 mg/dl (0.8-1.5) 01/06/18 05:45 Est GFR ( Amer) > 60 01/06/18 05:45 Est GFR (Non-Af Amer) 57 01/06/18 05:45 Random Glucose 90 mg/dL (70-110) 01/06/18 05:45 Hemoglobin A1c 5.9 % (4.2-6.5) 01/04/18 20:45 Calcium 9.0 mg/dL (8.4-10.5) 01/06/18 05:45 Magnesium 1.9 mg/dL (1.7-2.2) 01/03/18 16:59 Total Bilirubin 0.6 mg/dL (0.2-1.3) 01/06/18 05:45 AST 38 U/L (17-59) 01/06/18 05:45 ALT 30 U/L (7-56) 01/06/18 05:45 Alkaline Phosphatase 62 U/L (38-126) 01/06/18 05:45 Lactate Dehydrogenase 489 U/L (333-699) 01/03/18 16:59 Total Creatine Kinase 127 U/L (35-230) 01/03/18 16:59 Troponin I < 0.01 ng/mL 01/03/18 16:59 Total Protein 6.5 g/dL (5.8-8.3) 01/06/18 05:45 Albumin 3.6 g/dL (3.0-4.8) 01/06/18 05:45 Globulin 2.9 gm/dL 01/06/18 05:45 Albumin/Globulin Ratio 1.2 (1.1-1.8) 01/06/18 05:45 Triglycerides 102 mg/dL (35-160) 01/04/18 20:45 Cholesterol 153 mg/dL (130-200) 01/04/18 20:45 LDL Cholesterol Direct 61 mg/dL (0-129) 01/04/18 20:45 HDL Cholesterol 43 mg/dL (29-60) 01/04/18 20:45 Free T4 1.14 ng/dL (0.78-2.19) 01/04/18 20:45 TSH 3rd Generation 1.93 mIU/mL (0.46-4.68) 01/04/18 20:45 Urine Color Yellow (YELLOW) 01/03/18 22:32 Urine Appearance Clear (CLEAR) 01/03/18 22:32 Urine pH 6.5 (4.7-8.0) 01/03/18 22:32 Ur Specific [place] 1.015 (1.005-1.035) 01/03/18 22:32 Urine Protein Trace mg/dL (<30 mg/dL) H 01/03/18 22:32 Urine Glucose (UA) Negative mg/dL (NEGATIVE) 01/03/18 22:32 Urine Ketones Negative mg/dL (NEGATIVE) 01/03/18 22:32 Urine Blood Trace-lysed (NEGATIVE) H 01/03/18 22:32 Urine Nitrate Negative (NEGATIVE) 01/03/18 22:32 Urine Bilirubin Negative (NEGATIVE) 01/03/18 22:32 Urine Urobilinogen 0.2 E.U./dL (<1 E.U./dL) 01/03/18 22:32 Ur Leukocyte Esterase Negative [place]/uL (NEGATIVE) 01/03/18 22:32 Urine RBC 2 - 5 /hpf (0-2) 01/03/18 22:32 Urine WBC 0 - 2 /hpf (0-6) 01/03/18 22:32 Ur Epithelial Cells None /hpf (0-5) 01/03/18 22:32 Urine Bacteria Few (NEG) 01/03/18 22:32 Urine Opiates Screen Negative (NEGATIVE) 01/03/18 23:23 Urine Methadone Screen Negative (NEGATIVE) 01/03/18 23:23 Ur Barbiturates Screen Negative (NEGATIVE) 01/03/18 23:23 Ur Phencyclidine Scrn Negative (NEGATIVE) 01/03/18 23:23 Ur Amphetamines Screen Negative (NEGATIVE) 01/03/18 23:23 U Benzodiazepines Scrn Negative (NEGATIVE) 01/03/18 23:23 U Oth Cocaine Metabols Negative (NEGATIVE) 01/03/18 23:23 U Cannabinoids Screen Negative (NEGATIVE) 01/03/18 23:23 Double Strand DNA Ab <1 IU/mL 01/05/18 06:00 Blood Type O POSITIVE 01/03/18 18:10 Blood Type Confirm O POSITIVE 01/03/18 20:09 Antibody Screen Negative 01/03/18 18:10 BBK History Checked No verified bt 01/03/18 18:10 - Hospital Course Hospital Course: 57 year old male with a past medical history of active smoking, untreated hypertension, who presented with right sided hemiparesis and dysarthria and was deemed an appropriate candidate for tPA by Neurology. He was admitted to the ICU for tPA administration and with a cardene drip titrated to keep systolic blood pressure below 140. His neurological deficits resolved during his stay. MRI showed acute infarct changes seen in the left parietal operculum region extending anteriorly and inferiorly into the left posterior subinsular cortex as well as superiorly near the vertex. He was found to have an LVEF of 22.5%. Cardiology was consulted and recommended the patient get evaluated for underlying CAD in three weeks given the patient had a recent stroke. Important to note, the patient initial EKG showed an prior infarct of the inferior wall. He was started on a statin, aspirin, ACEI, and a Beta-mary for his cardiovascular disease. He was started on Aspirin for stroke prevention. Speech , swallow, physical therapy, and occupation therapy worked with the patient and on discharge physical therapy recommended the patient have outpatient physical therapy for one week. He was counselled on smoking cessation. He was discharged with the below written instructions and recommendations. He will be following up with a PMD and a roll coverer upon dishcharge. - Date & Time of H&P Date of H&P: 01/06/18 Time of H&P: 14:26 Discharge Exam - Head Exam Head Exam: ATRAUMATIC, NORMOCEPHALIC - Eye Exam Eye Exam: EOMI, Normal appearance - ENT Exam ENT Exam: Mucous Membranes Moist, Normal Oropharynx - Neck Exam Neck exam: Normal Inspection - Respiratory Exam Respiratory Exam: Clear to PA & Lateral, NORMAL BREATHING PATTERN. absent: Accessory Muscle Use - Cardiovascular Exam Cardiovascular Exam: RRR, +S1, +S2 - GI/Abdominal Exam GI & Abdominal Exam: Normal Bowel Sounds - Extremities Exam Extremities exam: normal inspection - Back Exam Back exam: NORMAL INSPECTION. absent: CVA tenderness (L), CVA tenderness (R) - Neurological Exam Neurological exam: Alert, Normal Gait, Oriented x3 - Psychiatric Exam Psychiatric exam: Normal Affect, Normal Mood - Skin Skin Exam: Dry, Intact, Normal Color, Warm Discharge Plan - Discharge Medications Prescriptions: Aspirin [Aspirin Chewable] 81 mg PO DAILY #30 chew Atorvastatin [Lipitor] 40 mg PO DIN #30 tab Carvedilol [Coreg] 6.25 mg PO BID #60 tab Lisinopril [Zestril] 10 mg PO DAILY #30 tab Nicotine 21 mg/24 hr [Nicoderm Cq] 1 patch TD DAILY #30 patch - Follow Up Plan Condition: STABLE Disposition: HOME/ ROUTINE Instructions: Stroke Additional Instructions: 1) Patient to follow up with Primary Medical Doctor within one week of discharge. 2) Patient to take all prescriptions as directed. 3) Patient to abstain from alcohol, tobacco, and drugs. 4) Patient should follow up with a roll coverer, Dr. Rowe, within the next month. Referrals: Tarun Rowe MD [Staff Provider] - Clinical Quality Measures - CQM - Heart Failure Ejection Fraction: Less Than 40 % Left Ventricular Function to be assessed after discharge: Yes MARY LOU Inhibitor Prescribed: Yes Beta-Mary Prescribed: Carvedilol <Flex Workman - Last Filed: 01/06/18 15:56> Provider - Provider Date of Admission: 01/03/18 19:14 Attending physician: Flex Workman MD Hospital Course - Lab Results Lab Results: Micro Results 01/04/18 20:45 Blood-Venous Blood Culture - Preliminary NO GROWTH AFTER 24 HOURS 01/04/18 20:30 Blood-Venous Blood Culture - Preliminary NO GROWTH AFTER 24 HOURS 01/03/18 21:22 Naris MRSA Culture (Admit) - Final MRSA NOT DETECTED 01/03/18 23:23 Urine,Clean Catch Urine Culture - Final No Growth (<1,000 CFU/ML) Most Recent Lab Values WBC 6.9 10^3/ul (4.5-11.0) 01/06/18 05:45 RBC 4.96 10^6/uL (3.5-6.1) 01/06/18 05:45 Hgb 13.8 g/dL (14.0-18.0) L 01/06/18 05:45 Hct 41.5 % (42.0-52.0) L 01/06/18 05:45 MCV 83.7 fl (80.0-105.0) 01/06/18 05:45 MCH 27.8 pg (25.0-35.0) 01/06/18 05:45 MCHC 33.3 g/dl (31.0-37.0) 01/06/18 05:45 RDW 14.4 % (11.5-14.5) 01/06/18 05:45 Plt Count 211 10^3/uL (120.0-450.0) 01/06/18 05:45 MPV 10.4 fl (7.0-11.0) 01/06/18 05:45 Gran % 47.7 % (50.0-68.0) L 01/06/18 05:45 Lymph % (Auto) 36.9 % (22.0-35.0) H 01/06/18 05:45 Potter % (Auto) 14.3 % (1.0-6.0) H 01/06/18 05:45 Eos % (Auto) 1.0 % (1.5-5.0) L 01/06/18 05:45 Baso % (Auto) 0.1 % (0.0-3.0) 01/06/18 05:45 Gran # 3.31 (1.4-6.5) 01/06/18 05:45 Lymph # (Auto) 2.6 (1.2-3.4) 01/06/18 05:45 Potter # (Auto) 1.0 (0.1-0.6) H 01/06/18 05:45 Eos # (Auto) 0.1 (0.0-0.7) 01/06/18 05:45 Baso # (Auto) 0.01 K/mm3 (0.0-2.0) 01/06/18 05:45 PT 12.0 SECONDS (9.4-12.5) 01/03/18 16:59 INR 1.05 (0.93-1.08) 01/03/18 16:59 APTT 31.7 Seconds (25.1-36.5) 01/03/18 16:59 Sodium 144 mmol/L (132-148) 01/06/18 05:45 Potassium 3.9 mmol/L (3.6-5.0) 01/06/18 05:45 Chloride 110 mmol/L (98-107) H 01/06/18 05:45 Carbon Dioxide 24 mmol/L (21-33) 01/06/18 05:45 Anion Gap 13 (10-20) 01/06/18 05:45 BUN 14 mg/dL (7-21) 01/06/18 05:45 Creatinine 1.3 mg/dl (0.8-1.5) 01/06/18 05:45 Est GFR ( Amer) > 60 01/06/18 05:45 Est GFR (Non-Af Amer) 57 01/06/18 05:45 Random Glucose 90 mg/dL (70-110) 01/06/18 05:45 Hemoglobin A1c 5.9 % (4.2-6.5) 01/04/18 20:45 Calcium 9.0 mg/dL (8.4-10.5) 01/06/18 05:45 Magnesium 1.9 mg/dL (1.7-2.2) 01/03/18 16:59 Total Bilirubin 0.6 mg/dL (0.2-1.3) 01/06/18 05:45 AST 38 U/L (17-59) 01/06/18 05:45 ALT 30 U/L (7-56) 01/06/18 05:45 Alkaline Phosphatase 62 U/L (38-126) 01/06/18 05:45 Lactate Dehydrogenase 489 U/L (333-699) 01/03/18 16:59 Total Creatine Kinase 127 U/L (35-230) 01/03/18 16:59 Troponin I < 0.01 ng/mL 01/03/18 16:59 Total Protein 6.5 g/dL (5.8-8.3) 01/06/18 05:45 Albumin 3.6 g/dL (3.0-4.8) 01/06/18 05:45 Globulin 2.9 gm/dL 01/06/18 05:45 Albumin/Globulin Ratio 1.2 (1.1-1.8) 01/06/18 05:45 Triglycerides 102 mg/dL (35-160) 01/04/18 20:45 Cholesterol 153 mg/dL (130-200) 01/04/18 20:45 LDL Cholesterol Direct 61 mg/dL (0-129) 01/04/18 20:45 HDL Cholesterol 43 mg/dL (29-60) 01/04/18 20:45 Free T4 1.14 ng/dL (0.78-2.19) 01/04/18 20:45 TSH 3rd Generation 1.93 mIU/mL (0.46-4.68) 01/04/18 20:45 Urine Color Yellow (YELLOW) 01/03/18 22:32 Urine Appearance Clear (CLEAR) 01/03/18 22:32 Urine pH 6.5 (4.7-8.0) 01/03/18 22:32 Ur Specific [place] 1.015 (1.005-1.035) 01/03/18 22:32 Urine Protein Trace mg/dL (<30 mg/dL) H 01/03/18 22:32 Urine Glucose (UA) Negative mg/dL (NEGATIVE) 01/03/18 22:32 Urine Ketones Negative mg/dL (NEGATIVE) 01/03/18 22:32 Urine Blood Trace-lysed (NEGATIVE) H 01/03/18 22:32 Urine Nitrate Negative (NEGATIVE) 01/03/18 22:32 Urine Bilirubin Negative (NEGATIVE) 01/03/18 22:32 Urine Urobilinogen 0.2 E.U./dL (<1 E.U./dL) 01/03/18 22:32 Ur Leukocyte Esterase Negative [place]/uL (NEGATIVE) 01/03/18 22:32 Urine RBC 2 - 5 /hpf (0-2) 01/03/18 22:32 Urine WBC 0 - 2 /hpf (0-6) 01/03/18 22:32 Ur Epithelial Cells None /hpf (0-5) 01/03/18 22:32 Urine Bacteria Few (NEG) 01/03/18 22:32 Urine Opiates Screen Negative (NEGATIVE) 01/03/18 23:23 Urine Methadone Screen Negative (NEGATIVE) 01/03/18 23:23 Ur Barbiturates Screen Negative (NEGATIVE) 01/03/18 23:23 Ur Phencyclidine Scrn Negative (NEGATIVE) 01/03/18 23:23 Ur Amphetamines Screen Negative (NEGATIVE) 01/03/18 23:23 U Benzodiazepines Scrn Negative (NEGATIVE) 01/03/18 23:23 U Oth Cocaine Metabols Negative (NEGATIVE) 01/03/18 23:23 U Cannabinoids Screen Negative (NEGATIVE) 01/03/18 23:23 Double Strand DNA Ab <1 IU/mL 01/05/18 06:00 Anti-Cardiolipin IgG Ab <14 GPL (<=14) 01/05/18 06:00 Anti-Cardiolipin IgA Ab <11 APL (<=11) 01/05/18 06:00 Blood Type O POSITIVE 01/03/18 18:10 Blood Type Confirm O POSITIVE 01/03/18 20:09 Antibody Screen Negative 01/03/18 18:10 BBK History Checked No verified bt 01/03/18 18:10 Attending/Attestation - Attestation I have personally seen and examined this patient.: Yes I have fully participated in the care of the patient.: Yes I have reviewed all pertinent clinical information, including history, physical exam and plan: Yes Notes (Text): 01/06/18 15:54 Medical record note made by the resident after discussion with my direction and input after the patient was personally seen and examined by me. I have reviewed the chart and agree that the record accurately reflects by personal performance of the history, physical exam, data review, and medical decision-making, in the course for the patient. I have also personally directed the plan of care. 57 male with PMH of HTN, cocaine user, ex smoker presented with R sided weakness and facial droop. Code Stroke was called in the ED and patient was given tPA and transferred to MICU for monitoring. MRI of Brain showedAcute infarct changes seen in the left lung parietal operculum region extending anteriorly and inferiorly into the left posterior subinsular cortex as well as superiorly near the vertex. Patient right sided weakness has resolved.His sensory symptoms are also resolved. p.Echo showed EF 22%, patient is euvolemic., he is on Lisinopril and Coreg.Patient was evaluated by cardiology and out patient stress test has been recommended.Patient will follow up with cardiology and [facility] clinic Management plan was discussed in detail with patient. Education was provided. 01/06/18 15:56
[2018-01-07 21:54] LABS: B2 GLYCOPROTEIN I AB(IGA) <9 SAU (<=20); B2 GLYCOPROTEIN I AB(IGG) <9 SGU (<=20); B2 GLYCOPROTEIN I AB(IGM) <9 SMU (<=20)
[2018-01-07 23:51] LABS: CARDIOLIPIN AB (IGA) <11 APL (<=11); CARDIOLIPIN AB (IGG) <14 GPL (<=14); CARDIOLIPIN AB (IGM) <12 MPL (<=12)
[2018-01-08 00:18] LABS: PHOSPHATIDYLSERINE AB IGA <20 U/mL (<20); PHOSPHATIDYLSERINE AB IGG <10 U/mL (<10); PHOSPHATIDYLSERINE AB IGM <25 U/mL (<25)
== END 2018-01-06 15:24 | disposition home or self-care (01) | DRG 62 ==
LOC: ED 16:25 → ERH 19:14 → CCU 20:45 → 3RNO 01-05 16:23
PROVIDERS: ADMIT Internal Medicine; ATTEND Internal Medicine
DX: I63.9 Cerebral infarction, unspecified (principal); G81.91 Hemiplegia, unspecified affecting right dominant side; I50.20 Unspecified systolic (congestive) heart failure; R29.810 Facial weakness; I42.0 Dilated cardiomyopathy; I11.0 Hypertensive heart disease with heart failure; R47.1 Dysarthria and anarthria; R29.713 NIHSS score 13; I25.10 Atherosclerotic heart disease of native coronary artery without angina pectoris; I25.2 Old myocardial infarction; F17.210 Nicotine dependence, cigarettes, uncomplicated